=== PATIENT | female | born 1985 | race Caucasian/White ===

== ENCOUNTER 2022-10-10 15:15 | Outpatient (RCR) | payer OTHER, SELFPAY ==
--- NOTE | 2022-06-27 16:34 | PT.OIE ---
Current Diagnoses Pain in left shoulder (06/27/22) Stiffness of left shoulder, not elsewhere classified (06/27/22) Superior glenoid labrum lesion of left shoulder, subsequent encounter (06/27/22) Visit Care Team Role Provider Type ARIANE Bartholomew Family Provider Non-Staff Primary Care Provider Specialty: Family Practice Address: [facility] [address], [place], [address] Email: Dandre Marrufo MD Attending Provider Non-Staff Referring Provider Specialty: Orthopedic Surgery Address: [address] [place] [address] , [place], [address] Email: Physical Therapy Initial Evaluation PT-OP-A Visit Information Start: 06/27/22 16:05 Freq: Status: Active Protocol: Document 06/27/22 09:45 DCW (Rec: 06/27/22 16:33 DC [id number]) Out-Patient Physical Therapy Visit Information Visit Information Visit Type Initial Evaluation Visit Note At time of eval, pt at 2.5 weeks post-op. Per post-op protocol, avoid PROM until three weeks post-op. Pt reports at her two week follow -up, she was told she needed to use her sling for an additional month. Visit Start Time 09:45 Visit Stop Time 10:20 Total Visit Minutes 35 Visit Number 1 Number of SAND CONDITIONER MACHINE Visits 0 Evaluation Information Evaluation Date 06/27/22 PT-OP-B Current Condition Start: 06/27/22 16:05 Freq: Status: Active Protocol: Document 06/27/22 09:45 DCW (Rec: 06/27/22 16:33 DCW [id number]) Current Condition History of Current Condition Onset Date 01/22/22 DOI, 06/09/22 DOS Current Complaints Post-op SLAP lesion, type II, additional biceps repair/ anchoring History of Current Condition Pt is a 36 year old female presenting 2.5 weeks s/p surgical repair of Type II SLAP lesion, as well as a biceps repair/anchoring. 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 MRI revealed partial supraspinatus tear, SLAP lesion type II, extending into LH biceps tendon. Pt underwent arthroscopic surgical repair on 06/09/22. Pt was just informed at post-op follow-up on 06/24/22 to remain in sling for one additional month. Per protocol, do not begin PROM until three-week chi post-op. Pt currently performing some left elbow ROM and pendulums for HEP. Pt reports her is , so since the day following surgery, she has been largely needing to do everything by herself, including don/doff sling. PT-OP-C Subjective Start: 06/27/22 16:05 Freq: Status: Active Protocol: Document 06/27/22 09:45 DCW (Rec: 06/27/22 16:33 DCW [id number]) OP-PT Subjective Patient Comments Patient Comments Pt admits to being very frustrated at the though of an additional month of needing the sling. Patient Questionnaires Quick Dash- Upper Extremity Quick Dash UE Score 90.91% Quick Dash UE Impairment 80 to 99% Impaired (Score 80- 99) OP-PT Pain Assessment Location Left Shoulder Intensity 5 Scale Used Numeric (0 - 10) Frequency Constant PT-OP-K Range of Motion Start: 06/27/22 16:05 Freq: Status: Active Protocol: Document 06/27/22 09:45 DCW (Rec: 06/27/22 16:33 DCW [id number]) Shoulder Goniometric Range of Motion Shoulder Left Passive Comments Pt performs pendulum for flexion PROM, left shoulder moves 10? into flexion Elbow/Forearm Range of Motion Elbow/Forearm Left Active Elbow/Forearm ROM WFL No ROM Testing Position Sitting Elbow Flexion (degrees) 134 Elbow Extension (degrees) 10 Comments Pt feels pull at biceps anchor point at 10? extension PT-OP-Q Treatments Start: 06/27/22 16:05 Freq: Status: Active Protocol: Document 06/27/22 09:45 DCW (Rec: 06/27/22 16:33 DCW [id number]) Therapeutic Exercises Standing Exercises Pendulums Side left PT-OP-T Assessment and Plan Start: 06/27/22 16:05 Freq: Status: Active Protocol: Document 06/27/22 09:45 DCW (Rec: 06/27/22 16:33 DCW [id number]) Physical Therapy Assessment Rehab Potential Rehabilitation Potential Good Evaluation Complexity Number of Personal Factors/Comorbidities 3 or More Number of Body Systems Impaired 1-2 Clinical Presentation at Evaluation Stable Impairments Impairments Functional Activities, Functional Mobility,Pain, Posture,ROM,Soft Tissue Mobility,Strength Goals Two Impairment Pt completely limited with all PROM, per post-op protocol Short Term Goal (STG) Pt to exhibit advancement of PROM following post-op protocol, getting to 80? flexion PROM in order to advance to improving scapular mobility and work toward strengthening STG Duration 07/25/22 Automatic Centrifugal Station Operator Goal (LTG) Pt to exhibit advancement of PROM following post-op protocol, getting to 120? flexion PROM LTG Duration 08/25/22 One Impairment Pt does not have an appropriate home exercise program Short Term Goal (STG) Pt to be independent and compliant with an appropriate PROM HEP STG Duration 07/25/22 Assessment Summary Assessment Pt quite limited for today's evaluation per post-op protocol, pt demonstrated attempts at pendulums, able to allow left shoulder into 10? of flexion, but attempts to move and let arm sway involved pt using AROM to move her UE. Reviewed how to perform proper pendulums, pt instructed at this time to just work on forward flexion by supported forward lean with gravity assist. Pt doing fairly well with elbow ROM, although still feeling pull at biceps anchor with elbow extension. Starting next week at 3 week post-op chi, pt should be better able to participate in gentle PROM, including pulleys and cane, as well as scapular mobility and strengthening. Will work with patient and surgical protocol to progress pt as tolerated through PROM, AROM, and return to normal function. Physical Therapy Plan Frequency and Duration Frequency of Treatment 2x/Week Plan of Care Start Date 06/27/22 Plan of Care End Date 08/25/22 Therapeutic Interventions Therapeutic Interventions Home Exercise Program,Joint Mobilizations,Manual Therapy, Neuromuscular Re-education, Patient/Caregiver Education, Self-Care/Home Management,Soft Tissue Mobilization, Therapeutic Activities, Therapeutic Exercises Modalities Cold Pack/Ice Massage,Electric Stimulation,Hot Packs, Ultrasound Next Visit Focus/Plan Next Note Type Treatment Note Next Visit Plan PROM (Pulleys, Cane, pendulums , therapist-assisted mobility) , scapular mobility, cervical stretching
--- NOTE | 2022-06-27 16:34 | PT.OPPOC ---
Physical, Occupational & Speech Therapy At [facility] Current Diagnoses Pain in left shoulder (06/27/22) Stiffness of left shoulder, not elsewhere classified (06/27/22) Superior glenoid labrum lesion of left shoulder, subsequent encounter (06/27/22) Visit Care Team Role Provider Type ARIANE Bartholomew Family Provider Non-Staff Primary Care Provider Specialty: Family Practice [facility] [address], [place], [address] Email: Dandre Marrufo MD Attending Provider Non-Staff Referring Provider Specialty: Orthopedic Surgery Address: [address], [place], [address] Email: Plan Of Care PT-OP-T Assessment and Plan Start: 06/27/22 16:05 Freq: Status: Active Protocol: Document 06/27/22 09:45 DCW (Rec: 06/27/22 16:33 DCW [id number]) Physical Therapy Assessment Rehab Potential Rehabilitation Potential Good Evaluation Complexity Number of Personal Factors/Comorbidities 3 or More Number of Body Systems Impaired 1-2 Clinical Presentation at Evaluation Stable Impairments Impairments Functional Activities, Functional Mobility,Pain, Posture,ROM,Soft Tissue Mobility,Strength Goals Two Impairment Pt completely limited with all PROM, per post-op protocol Short Term Goal (STG) Pt to exhibit advancement of PROM following post-op protocol, getting to 80? flexion PROM in order to advance to improving scapular mobility and work toward strengthening STG Duration 07/25/22 Group Home Goal (LTG) Pt to exhibit advancement of PROM following post-op protocol, getting to 120? flexion PROM LTG Duration 08/25/22 One Impairment Pt does not have an appropriate home exercise program Short Term Goal (STG) Pt to be independent and compliant with an appropriate PROM HEP STG Duration 07/25/22 Assessment Summary Assessment Pt quite limited for today's evaluation per post-op protocol, pt demonstrated attempts at pendulums, able to allow left shoulder into 10? of flexion, but attempts to move and let arm sway involved pt using AROM to move her UE. Reviewed how to perform proper pendulums, pt instructed at this time to just work on forward flexion by supported forward lean with gravity assist. Pt doing fairly well with elbow ROM, although still feeling pull at biceps anchor with elbow extension. Starting next week at 3 week post-op chi, pt should be better able to participate in gentle PROM, including pulleys and cane, as well as scapular mobility and strengthening. Will work with patient and surgical protocol to progress pt as tolerated through PROM, AROM, and return to normal function. Physical Therapy Plan Frequency and Duration Frequency of Treatment 2x/Week Plan of Care Start Date 06/27/22 Plan of Care End Date 08/25/22 Therapeutic Interventions Therapeutic Interventions Home Exercise Program,Joint Mobilizations,Manual Therapy, Neuromuscular Re-education, Patient/Caregiver Education, Self-Care/Home Management,Soft Tissue Mobilization, Therapeutic Activities, Therapeutic Exercises Modalities Cold Pack/Ice Massage,Electric Stimulation,Hot Packs, Ultrasound Next Visit Focus/Plan Next Note Type Treatment Note Next Visit Plan PROM (Pulleys, Cane, pendulums , therapist-assisted mobility) , scapular mobility, cervical stretching Plan of Care Dates Plan of Care Start Date 06/27/22 Plan of Care End Date 08/25/22 Electronically Signed by: Sushant Chavis, PT 07/01/22 1030 If you are in agreement with this Plan of Care, please return a signed and dated copy. I have reviewed this Plan of Care and certify that the skilled therapy services above are required to meet the patient?s needs. Physician Signature Date Printed Name and Credentials Clinical Instructor Signature Printed Name and Credentials
--- NOTE | 2022-07-01 13:05 | PT.OTN ---
Current Diagnoses Pain in left shoulder (07/01/22) Stiffness of left shoulder, not elsewhere classified (07/01/22) Superior glenoid labrum lesion of left shoulder, subsequent encounter (07/01/22) Physical Therapy Treatment Note PT-OP-A Visit Information Start: 06/27/22 16:05 Freq: Status: Active Protocol: Document 07/01/22 12:14 SP (Rec: 07/01/22 13:51 SP [id number]) Out-Patient Physical Therapy Visit Information Visit Information Visit Type Treatment Note Visit Start Time 12:14 Visit Stop Time 13:05 Total Visit Minutes 51 Visit Number 2 Number of COUNTER CLERK [employer] Visits 1 Evaluation Information Evaluation Date 06/27/22 Precautions Precautions DOS: 06/09/22: At time of eval, pt at 2.5 weeks post-op. Per post-op protocol, avoid PROM until three weeks post-op. Pt reports at her two week follow -up, she was told she needed to use her sling for an additional month. PT-OP-B Current Condition Start: 06/27/22 16:05 Freq: Status: Active Protocol: Document 06/27/22 09:45 DCW (Rec: 06/27/22 16:33 DCW [id number]) Current Condition History of Current Condition Onset Date 01/22/22 DOI, 06/09/22 DOS Current Complaints Post-op SLAP lesion, type II, additional biceps repair/ anchoring History of Current Condition Pt is a 36 year old female presenting 2.5 weeks s/p surgical repair of Type II SLAP lesion, as well as a biceps repair/anchoring. 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 MRI revealed partial supraspinatus tear, SLAP lesion type II, extending into LH biceps tendon. Pt underwent arthroscopic surgical repair on 06/09/22. Pt was just informed at post-op follow-up on 06/24/22 to remain in sling for one additional month. Per protocol, do not begin PROM until three-week chi post-op. Pt currently performing some left elbow ROM and pendulums for HEP. Pt reports her is , so since the day following surgery, she has been largely needing to do everything by herself, including don/doff sling. PT-OP-C Subjective Start: 06/27/22 16:05 Freq: Status: Active Protocol: Document 07/01/22 12:14 SP (Rec: 07/01/22 13:51 SP [id number]) OP-PT Subjective Patient Comments Patient Comments Pt reported little sore after last tx eval. Better understanding trunk wt shift pendulums seated. PT-OP-K Range of Motion Start: 06/27/22 16:05 Freq: Status: Active Protocol: Document 06/27/22 09:45 DCW (Rec: 06/27/22 16:33 DCW [id number]) Shoulder Goniometric Range of Motion Shoulder Left Passive Comments Pt performs pendulum for flexion PROM, left shoulder moves 10? into flexion Elbow/Forearm Range of Motion Elbow/Forearm Left Active Elbow/Forearm ROM WFL No ROM Testing Position Sitting Elbow Flexion (degrees) 134 Elbow Extension (degrees) 10 Comments Pt feels pull at biceps anchor point at 10? extension PT-OP-Q Treatments Start: 06/27/22 16:05 Freq: Status: Active Protocol: Document 07/01/22 12:14 SP (Rec: 07/01/22 13:51 SP [id number]) Therapeutic Exercises Supine Exercises AAROM R elbow Supine Exercise Name flex, ext, pron, sup tolerant range Side left Resistance AAROM therapist, ed self supported by RUE Reps/Minutes 2 min Comments ed for use RUE to support LUE PROM L shld Supine Exercise Name FF up to 45 deg lynn, Side left Sitting Exercises UT, LS stretch Sitting Exercise Name added to HEP Side left Reps/Minutes 20SH Comments good feedback stretch scap retraction Sitting Exercise Name added to HEP Side bilateral Reps/Minutes 5 SH x10 Comments cued tall posture front chair, not over recruit L shld AAROM L elbow Sitting Exercise Name flex/ext/pron/sup tolerant painfree range Side left Resistance RUE support LUE Standing Exercises self STMs Standing Exercise Name demontrated, not performed- recheck next tx Side left Equipment Used ball wall post interscap ball in sock Comments good understanding no over bony prominences Pendulums Standing Exercise Name reviewed seated and finds feels better and give proximation support Side left Resistance PROM Comments good feedback Manual Therapy Treatment Soft Tissue Mobilization scar mobility Body Location L shld Mobilization Type Myofascial Release Intensity/Depth Superficial Body Position Hooklying Comments manual, ed self gentle L arm Body Location L deltoid, lateral humerus Mobilization Type Myofascial Release,Rolling Intensity/Depth Superficial Body Position Sidelying Comments manual gentle L scap Body Location rhomboid, infrasp, suprasp, UT , LS Mobilization Type Strumming,Sustained Pressure, Other Intensity/Depth Moderate Body Position Sidelying Comments manual gently, ed on self use tennis ball in sock back to wall and sustained pressure of RUE FM head nod/turn (UT/LS) Manual Techniques PROM Type L shld FF up to 45 deg tolerance painfree fluid movt Body Location L UE/shld Body Position Hooklying Comments manual painfree range gentle slow movement. Self-Care/Home Management Treatment Education Patient Education Body Mechanics,Home Exercise Program,Joint Protection,Pain Management,Posture,Safety Caregiver Education Time spent propping with pillows neutral L shld for comfort and proximal support with sling donned supine. PROM with L elbow with RUE for now to allow decrease proximal tugging discomfort of bicep tendon states experiences. Added: UT/LS stretching, PROM L elbow w/ RUE, scap retraction, theraputty Yellow more than ball with sling good response. PT-OP-R Modalities Start: 07/01/22 14:59 Freq: Status: Active Protocol: Document 07/01/22 12:14 SP (Rec: 07/01/22 15:00 SP [id number]) Hot Pack/Cold Pack Treatment cryocuff Location L shld Patient Position Sitting Treatment Duration (minutes) 10 Patient Tolerance Good Comments pillow propped under L arm, added w/ sling donned as well. PT-OP-T Assessment and Plan Start: 06/27/22 16:05 Freq: Status: Active Protocol: Document 07/01/22 12:14 SP (Rec: 07/01/22 13:51 SP [id number]) Physical Therapy Assessment Goals Two Impairment Pt completely limited with all PROM, per post-op protocol Short Term Goal (STG) Pt to exhibit advancement of PROM following post-op protocol, getting to 80? flexion PROM in order to advance to improving scapular mobility and work toward strengthening STG Duration 07/25/22 Fdc Goal (LTG) Pt to exhibit advancement of PROM following post-op protocol, getting to 120? flexion PROM LTG Duration 08/25/22 One Impairment Pt does not have an appropriate home exercise program Short Term Goal (STG) Pt to be independent and compliant with an appropriate PROM HEP STG Duration 07/25/22 Assessment Summary Assessment Pt only tolerated 45 deg PROM FF this tx. Good understanding scapular ROM w/ manual and carryover quality seated for home and posturing. Beter response and understanding RUE support LUE during AAROM/PROM L elbow flex/ext less/no tug/ discomfort on proximal bicep with assist this tx. Good feedback to stretching UT/ LS and self STMs to neck/scap. Welcoming to cryocuff this tx, uses CP at home. Good understanding self scar mobility gently at home carryover. Good pendulum proximal support and use of LUE to support RUE during PROM small swings/ ROM Physical Therapy Plan Frequency and Duration Frequency of Treatment 2x/Week Plan of Care Start Date 06/27/22 Plan of Care End Date 08/25/22 Therapeutic Interventions Therapeutic Interventions Home Exercise Program,Joint Mobilizations,Manual Therapy, Neuromuscular Re-education, Patient/Caregiver Education, Self-Care/Home Management,Soft Tissue Mobilization, Therapeutic Activities, Therapeutic Exercises Modalities Cold Pack/Ice Massage,Electric Stimulation,Hot Packs, Ultrasound Next Visit Focus/Plan Next Note Type Treatment Note Next Visit Plan Assess response to PROM FF 45 deg and seated LUE assist RUE pendulum and self massage, scap retractions. POC: Assess if able to progress (Pulleys, Cane, pendulums, therapist-assisted mobility), scapular mobility
--- NOTE | 2022-07-04 15:25 | PT.OTN ---
Current Diagnoses Pain in left shoulder (07/04/22) Stiffness of left shoulder, not elsewhere classified (07/04/22) Superior glenoid labrum lesion of left shoulder, subsequent encounter (07/04/22) Physical Therapy Treatment Note PT-OP-A Visit Information Start: 06/27/22 16:05 Freq: Status: Active Protocol: Document 07/04/22 14:32 SP (Rec: 07/04/22 16:08 SP [id number]) Out-Patient Physical Therapy Visit Information Visit Information Visit Type Treatment Note Visit Start Time 14:32 Visit Stop Time 15:25 Total Visit Minutes 53 Visit Number 3 Number of DUST PULLER Visits 2 Evaluation Information Evaluation Date 06/27/22 Precautions Precautions DOS: 06/09/22: Pt reports at her two week follow-up, she was told she needed to use her sling for an additional month. PT-OP-B Current Condition Start: 06/27/22 16:05 Freq: Status: Active Protocol: Document 06/27/22 09:45 DCW (Rec: 06/27/22 16:33 DCW [id number]) Current Condition History of Current Condition Onset Date 01/22/22 DOI, 06/09/22 DOS Current Complaints Post-op SLAP lesion, type II, additional biceps repair/ anchoring History of Current Condition Pt is a 36 year old female presenting 2.5 weeks s/p surgical repair of Type II SLAP lesion, as well as a biceps repair/anchoring. 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 MRI revealed partial supraspinatus tear, SLAP lesion type II, extending into LH biceps tendon. Pt underwent arthroscopic surgical repair on 06/09/22. Pt was just informed at post-op follow-up on 06/24/22 to remain in sling for one additional month. Per protocol, do not begin PROM until three-week chi post-op. Pt currently performing some left elbow ROM and pendulums for HEP. Pt reports her is , so since the day following surgery, she has been largely needing to do everything by herself, including don/doff sling. PT-OP-C Subjective Start: 06/27/22 16:05 Freq: Status: Active Protocol: Document 07/04/22 14:32 SP (Rec: 07/04/22 16:08 SP [id number]) OP-PT Subjective Patient Comments Patient Comments Pt reports felt a stitch out of scar on back L shld, feels skin little irritated. Called ortho regarding stitch and pop felt and tingling in L bicep pre last tx and was instructed if doesn't improve before next week call back. Pt reports utilizes CP at home regularly for comfort and only needed to take Tylenol this am, might take later for comfort. PT-OP-K Range of Motion Start: 06/27/22 16:05 Freq: Status: Active Protocol: Document 06/27/22 09:45 DCW (Rec: 06/27/22 16:33 DCW [id number]) Shoulder Goniometric Range of Motion Shoulder Left Passive Comments Pt performs pendulum for flexion PROM, left shoulder moves 10? into flexion Elbow/Forearm Range of Motion Elbow/Forearm Left Active Elbow/Forearm ROM WFL No ROM Testing Position Sitting Elbow Flexion (degrees) 134 Elbow Extension (degrees) 10 Comments Pt feels pull at biceps anchor point at 10? extension PT-OP-Q Treatments Start: 06/27/22 16:05 Freq: Status: Active Protocol: Document 07/04/22 14:32 SP (Rec: 07/04/22 16:08 SP [id number]) Therapeutic Exercises Supine Exercises PROM L shld wand Supine Exercise Name trialed FF (bent elbow) Side left Resistance PROM via wand (RUE support LUE ) Reps/Minutes x2 rep attempt Comments discomfort in L bicep and anterior shld- Hold PROM L shld Supine Exercise Name FF up to 55 deg lynn, Side left Reps/Minutes 2 min Comments painfree range Sidelying Exercises scapular clocks Sidelying Exercise Name 12, 6, 3, 9 o'clock Side left Resistance AROM Reps/Minutes x6 reps each direction Comments good feedback, painfree Sitting Exercises table slide Sitting Exercise Name trialed FF- 07/04/22 Side left Resistance PROM L shld- trunk flexion Reps/Minutes x2 rep attempt Comments discomfort anterior L shld- Hold bryn Sitting Exercise Name trialed FF- 07/04/22 Side left Resistance RUE PROM support LUE Reps/Minutes 2 reps Comments cued no UT, challenged without compensations- Hold for now UT, LS stretch Sitting Exercise Name reviewed HEP Side left Reps/Minutes 20SH each Comments good feedback stretch scap retraction Sitting Exercise Name reviewed HEP Side bilateral Reps/Minutes 5 SH x10 Comments cued tall posture front chair, not over recruit L shld AAROM L elbow Sitting Exercise Name flex/ext/pron/sup- reviewed HEP Side left Resistance RUE support LUE Equipment Used pillow under elbow Reps/Minutes x10 reps each Comments slow tolerant painfree range Standing Exercises Pendulums Standing Exercise Name f/b/lateral/ CW/ CCW: seated best painfree Side left Resistance PROM via RUE (R elbow rested on R knee, straight back) Reps/Minutes 1 min Comments good feedback no tension felt Manual Therapy Treatment Soft Tissue Mobilization scar mobility Body Location L shld Mobilization Type Myofascial Release Intensity/Depth Superficial Body Position Hooklying Comments manual, little stitch sticking out of posterior L shld scar, pt states little irritated by shirt rubbing on it- noted very light pink coloring spot L arm Body Location L deltoid, tricep, bicep Mobilization Type Myofascial Release,Rolling Intensity/Depth Superficial Body Position Sidelying Comments manual gentle L scap Body Location rhomboid, infrasp, suprasp, UT , LS Mobilization Type Strumming,Sustained Pressure, Other Intensity/Depth Moderate Body Position Sidelying Comments manual gently, ed on self use tennis ball in sock back to wall and sustained pressure of RUE FM head nod/turn (UT/LS) Joint Mobilizations scap thoracic Joint L shld Direction superior, inferior, retract, depression Grade I Body Position Sidelying Comments good feedback maual with ed for scapular clocks. Manual Techniques PROM Type L shld FF up to 55 deg tolerance painfree fluid movt Body Location L UE/shld Body Position Hooklying Comments manual painfree range gentle slow movement/range. PT-OP-R Modalities Start: 07/01/22 14:59 Freq: Status: Active Protocol: Document 07/04/22 14:32 SP (Rec: 07/04/22 16:08 SP [id number]) Hot Pack/Cold Pack Treatment cryocuff Location L shld Patient Position Sitting Treatment Duration (minutes) 10 Patient Tolerance Good Comments arm rested in lap- good PT-OP-T Assessment and Plan Start: 06/27/22 16:05 Freq: Status: Active Protocol: Document 07/04/22 14:32 SP (Rec: 07/04/22 16:08 SP [id number]) Physical Therapy Assessment Goals Two Impairment Pt completely limited with all PROM, per post-op protocol Short Term Goal (STG) Pt to exhibit advancement of PROM following post-op protocol, getting to 80? flexion PROM in order to advance to improving scapular mobility and work toward strengthening STG Duration 07/25/22 Snf Goal (LTG) Pt to exhibit advancement of PROM following post-op protocol, getting to 120? flexion PROM LTG Duration 08/25/22 One Impairment Pt does not have an appropriate home exercise program Short Term Goal (STG) Pt to be independent and compliant with an appropriate PROM HEP STG Duration 07/25/22 Assessment Summary Assessment Pt less guarding during PROM FF able to progress approx 55deg reported almost no discomfort. Attempted PROM self use pulleys/ table slide seated/wand supine FF, unable to perform without shld elevation and slight protraction guarding and midlevel pain anterior 2 reps very small range so discussed will reassess next tx. Physical Therapy Plan Frequency and Duration Frequency of Treatment 2x/Week Plan of Care Start Date 06/27/22 Plan of Care End Date 08/25/22 Therapeutic Interventions Therapeutic Interventions Home Exercise Program,Joint Mobilizations,Manual Therapy, Neuromuscular Re-education, Patient/Caregiver Education, Self-Care/Home Management,Soft Tissue Mobilization, Therapeutic Activities, Therapeutic Exercises Modalities Cold Pack/Ice Massage,Electric Stimulation,Hot Packs, Ultrasound Next Visit Focus/Plan Next Note Type Treatment Note Next Visit Plan Assess response to PROM FF 55 deg, attempt PROM self (pully, table slide, supine wand) POC: Assess if able to progress (Pulleys, Cane, pendulums, therapist-assisted mobility), scapular mobility
--- NOTE | 2022-07-07 12:49 | PT.OTN ---
Current Diagnoses Pain in left shoulder (07/07/22) Stiffness of left shoulder, not elsewhere classified (07/07/22) Superior glenoid labrum lesion of left shoulder, subsequent encounter (07/07/22) Physical Therapy Treatment Note PT-OP-A Visit Information Start: 06/27/22 16:05 Freq: Status: Active Protocol: Document 07/07/22 09:44 AMB (Rec: 07/07/22 10:35 AMB [id number]) Out-Patient Physical Therapy Visit Information Visit Information Visit Type Treatment Note Visit Start Time 14:32 Visit Stop Time 15:25 Total Visit Minutes 53 Visit Number 4 Number of HUMAN RESOURCES SPECIALIST Visits 0 PT-OP-B Current Condition Start: 06/27/22 16:05 Freq: Status: Active Protocol: Document 06/27/22 09:45 DCW (Rec: 06/27/22 16:33 DCW [id number]) Current Condition History of Current Condition Onset Date 01/22/22 DOI, 06/09/22 DOS Current Complaints Post-op SLAP lesion, type II, additional biceps repair/ anchoring History of Current Condition Pt is a 36 year old female presenting 2.5 weeks s/p surgical repair of Type II SLAP lesion, as well as a biceps repair/anchoring. 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 MRI revealed partial supraspinatus tear, SLAP lesion type II, extending into LH biceps tendon. Pt underwent arthroscopic surgical repair on 06/09/22. Pt was just informed at post-op follow-up on 06/24/22 to remain in sling for one additional month. Per protocol, do not begin PROM until three-week chi post-op. Pt currently performing some left elbow ROM and pendulums for HEP. Pt reports her is , so since the day following surgery, she has been largely needing to do everything by herself, including don/doff sling. PT-OP-C Subjective Start: 06/27/22 16:05 Freq: Status: Active Protocol: Document 07/07/22 09:44 AMB (Rec: 07/07/22 10:35 AMB [id number]) OP-PT Subjective Patient Comments Patient Comments The patient reports she continues to have anterior shoulder pain PT-OP-K Range of Motion Start: 06/27/22 16:05 Freq: Status: Active Protocol: Document 06/27/22 09:45 DCW (Rec: 06/27/22 16:33 DCW [id number]) Shoulder Goniometric Range of Motion Shoulder Left Passive Comments Pt performs pendulum for flexion PROM, left shoulder moves 10? into flexion Elbow/Forearm Range of Motion Elbow/Forearm Left Active Elbow/Forearm ROM WFL No ROM Testing Position Sitting Elbow Flexion (degrees) 134 Elbow Extension (degrees) 10 Comments Pt feels pull at biceps anchor point at 10? extension PT-OP-Q Treatments Start: 06/27/22 16:05 Freq: Status: Active Protocol: Document 07/07/22 09:45 AMB (Rec: 07/07/22 12:47 AMB [id number]) Therapeutic Exercises Supine Exercises PROM L shld Supine Exercise Name FF up to 40-50 deg lynn, Side left Reps/Minutes 2 min Comments painfree range Sitting Exercises AAROM L elbow Sitting Exercise Name flex/ext/pron/sup- reviewed HEP Side left Resistance RUE support LUE Equipment Used pillow under elbow Reps/Minutes x10 reps each Comments slow tolerant painfree range Manual Therapy Treatment Soft Tissue Mobilization L arm Body Location L deltoid, tricep, bicep Mobilization Type Myofascial Release,Rolling Intensity/Depth Superficial Body Position Sidelying Comments manual gentle Manual Techniques PROM Type L shld FF up to 55 deg tolerance painfree fluid movt Body Location L UE/shld Body Position Hooklying Comments manual painfree range gentle slow movement/range, started gently working into gentle scaption and IR but very small range. PT-OP-R Modalities Start: 07/01/22 14:59 Freq: Status: Active Protocol: Document 07/07/22 09:45 AMB (Rec: 07/07/22 12:48 AMB [id number]) Hot Pack/Cold Pack Treatment Cold Pack Location L shoulder Patient Position Sitting Treatment Duration (minutes) 10 Patient Tolerance Good PT-OP-T Assessment and Plan Start: 06/27/22 16:05 Freq: Status: Active Protocol: Document 07/07/22 09:45 AMB (Rec: 07/07/22 12:47 AMB [id number]) Physical Therapy Assessment Goals Two Impairment Pt completely limited with all PROM, per post-op protocol Short Term Goal (STG) Pt to exhibit advancement of PROM following post-op protocol, getting to 80? flexion PROM in order to advance to improving scapular mobility and work toward strengthening STG Duration 07/25/22 Helpdesk Administrator Goal (LTG) Pt to exhibit advancement of PROM following post-op protocol, getting to 120? flexion PROM LTG Duration 08/25/22 One Impairment Pt does not have an appropriate home exercise program Short Term Goal (STG) Pt to be independent and compliant with an appropriate PROM HEP STG Duration 07/25/22 Assessment Summary Assessment Pt reports increased pain after Thursday. Has been doing seated PROM with other arm, to approx 40 degrees, encouraged pt to continue with this and discussed normal healing process at length. Physical Therapy Plan Frequency and Duration Frequency of Treatment 2x/Week Plan of Care Start Date 06/27/22 Plan of Care End Date 08/25/22 Therapeutic Interventions Therapeutic Interventions Home Exercise Program,Joint Mobilizations,Manual Therapy, Neuromuscular Re-education, Patient/Caregiver Education, Self-Care/Home Management,Soft Tissue Mobilization, Therapeutic Activities, Therapeutic Exercises Modalities Cold Pack/Ice Massage,Electric Stimulation,Hot Packs, Ultrasound Next Visit Focus/Plan Next Note Type Treatment Note Next Visit Plan Assess response to PROM FF 55 deg, pt attempting PROM in seated. POC: Assess if able to progress (Pulleys, Cane, pendulums, therapist-assisted mobility), scapular mobility
--- NOTE | 2022-07-11 09:52 | PT.OTN ---
Current Diagnoses Pain in left shoulder (07/11/22) Stiffness of left shoulder, not elsewhere classified (07/11/22) Superior glenoid labrum lesion of left shoulder, subsequent encounter (07/11/22) Physical Therapy Treatment Note PT-OP-A Visit Information Start: 06/27/22 16:05 Freq: Status: Active Protocol: Document 07/11/22 09:04 SP (Rec: 07/11/22 09:51 SP [id number]) Out-Patient Physical Therapy Visit Information Visit Information Visit Type Treatment Note Visit Start Time 09:04 Visit Stop Time 09:52 Total Visit Minutes 48 Visit Number 5 Number of SPRING COVERER Visits 1 Evaluation Information Evaluation Date 06/27/22 Precautions Precautions DOS: 06/09/22: Pt reports at her two week follow-up, she was told she needed to use her sling for an additional month. PT-OP-B Current Condition Start: 06/27/22 16:05 Freq: Status: Active Protocol: Document 06/27/22 09:45 DCW (Rec: 06/27/22 16:33 DCW [id number]) Current Condition History of Current Condition Onset Date 01/22/22 DOI, 06/09/22 DOS Current Complaints Post-op SLAP lesion, type II, additional biceps repair/ anchoring History of Current Condition Pt is a 36 year old female presenting 2.5 weeks s/p surgical repair of Type II SLAP lesion, as well as a biceps repair/anchoring. 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 MRI revealed partial supraspinatus tear, SLAP lesion type II, extending into LH biceps tendon. Pt underwent arthroscopic surgical repair on 06/09/22. Pt was just informed at post-op follow-up on 06/24/22 to remain in sling for one additional month. Per protocol, do not begin PROM until three-week chi post-op. Pt currently performing some left elbow ROM and pendulums for HEP. Pt reports her is , so since the day following surgery, she has been largely needing to do everything by herself, including don/doff sling. PT-OP-C Subjective Start: 06/27/22 16:05 Freq: Status: Active Protocol: Document 07/11/22 09:04 SP (Rec: 07/11/22 09:51 SP [id number]) OP-PT Subjective Patient Comments Patient Comments Pt reports feels doing well with standing pendulum and PROM seated in FF RUE supporting LUE. PT-OP-K Range of Motion Start: 06/27/22 16:05 Freq: Status: Active Protocol: Document 06/27/22 09:45 DCW (Rec: 06/27/22 16:33 DCW [id number]) Shoulder Goniometric Range of Motion Shoulder Left Passive Comments Pt performs pendulum for flexion PROM, left shoulder moves 10? into flexion Elbow/Forearm Range of Motion Elbow/Forearm Left Active Elbow/Forearm ROM WFL No ROM Testing Position Sitting Elbow Flexion (degrees) 134 Elbow Extension (degrees) 10 Comments Pt feels pull at biceps anchor point at 10? extension PT-OP-Q Treatments Start: 06/27/22 16:05 Freq: Status: Active Protocol: Document 07/11/22 09:04 SP (Rec: 07/11/22 09:51 SP [id number]) Therapeutic Exercises Supine Exercises PROM L shld wand Supine Exercise Name therapist support- HOld today- trial next tx Side left Resistance PROM via wand (RUE support LUE ) Reps/Minutes x2 rep attempt Comments discomfort in L bicep and anterior shld PROM L shld Supine Exercise Name FF up to 70 deg lynn, Side left Reps/Minutes 2 min Comments painfree range Sitting Exercises table slide Sitting Exercise Name cued painfree range small range Side left Resistance PROM L shld- trunk flexion Reps/Minutes x2 rep attempt Comments cued slow bryn Sitting Exercise Name improved tolerance FF (elbow bent) Side left Resistance RUE PROM support LUE Reps/Minutes 2 reps Comments cued no UT, challenged without compensations- Hold for now scap retraction Sitting Exercise Name reviewed HEP Side bilateral Reps/Minutes 5 SH x10 Comments cued tall posture front chair, not over recruit L shld AAROM L elbow Sitting Exercise Name flex/ext/pron/sup- reviewed HEP Side left Resistance RUE support LUE Equipment Used pillow under elbow Reps/Minutes x10 reps each Comments slow tolerant painfree range Standing Exercises PROM RUE support LUE Standing Exercise Name reviewed self- good form approx 75 deg Comments seated best form, least tension ant shld, attempted wall painful stopped Pendulums Standing Exercise Name f/b/lateral/ CW/ CCW Side left Resistance PROM standing mom Reps/Minutes 1 min Comments good feedback no tension felt Manual Therapy Treatment Soft Tissue Mobilization scar mobility Body Location L shld Mobilization Type Myofascial Release Intensity/Depth Superficial Body Position Hooklying Comments manual, little stitch sticking out of posterior L shld scar, pt states little irritated by shirt rubbing on it- noted very light pink coloring spot L arm Body Location L deltoid, tricep, bicep, pec, B forearm flex/ext Mobilization Type Myofascial Release,Rolling Intensity/Depth Superficial Body Position Hooklying Comments manual gentle Joint Mobilizations L GH jt Direction AP, inf/sup Grade I Body Position Hooklying Comments gentle small painfree range Manual Techniques PROM Type L shld FF up to deg tolerance painfree fluid movt Body Location L UE/shld Body Position Hooklying Comments manual painfree range gentle slow movement/range, started gently working into gentle scaption and IR but very small range. PT-OP-R Modalities Start: 07/01/22 14:59 Freq: Status: Active Protocol: Document 07/11/22 09:04 SP (Rec: 07/11/22 09:51 SP [id number]) Hot Pack/Cold Pack Treatment cryocuff Location L shld Patient Position Sitting Treatment Duration (minutes) 10 Patient Tolerance Good Comments arm rested in lap- good PT-OP-T Assessment and Plan Start: 06/27/22 16:05 Freq: Status: Active Protocol: Document 07/11/22 09:04 SP (Rec: 07/11/22 09:51 SP [id number]) Physical Therapy Assessment Goals Two Impairment Pt completely limited with all PROM, per post-op protocol Short Term Goal (STG) Pt to exhibit advancement of PROM following post-op protocol, getting to 80? flexion PROM in order to advance to improving scapular mobility and work toward strengthening STG Duration 07/25/22 Legal Advisor Goal (LTG) Pt to exhibit advancement of PROM following post-op protocol, getting to 120? flexion PROM LTG Duration 08/25/22 One Impairment Pt does not have an appropriate home exercise program Short Term Goal (STG) Pt to be independent and compliant with an appropriate PROM HEP STG Duration 07/25/22 Assessment Summary Assessment Pt making gains in PROM therapist approx 70 deg FF. Pt responded best PROM FF self RUE supporting L seated by end tx approx 80deg vs supine vs standing at wall. Does not tolerate initiation of wand at this time. Pt does not have pulleys at home and unsure can get any, suggested get bryn /rope at [employer] for self performance for least cost. Ed for improved upright posturing decrease forward head on phone during CP at end tx for decreased pressure on posterior chain/nerve distribution, DNF and scap retraction pec stretch post sitting scap/ CS ROM. Physical Therapy Plan Frequency and Duration Frequency of Treatment 2x/Week Plan of Care Start Date 06/27/22 Plan of Care End Date 08/25/22 Therapeutic Interventions Therapeutic Interventions Home Exercise Program,Joint Mobilizations,Manual Therapy, Neuromuscular Re-education, Patient/Caregiver Education, Self-Care/Home Management,Soft Tissue Mobilization, Therapeutic Activities, Therapeutic Exercises Modalities Cold Pack/Ice Massage,Electric Stimulation,Hot Packs, Ultrasound Next Visit Focus/Plan Next Note Type Treatment Note Next Visit Plan Continue pulleys post manual, attempt wand. POC: Assess if able to progress (Pulleys, Cane, pendulums, therapist-assisted mobility), scapular mobility
--- NOTE | 2022-07-21 15:49 | PT.OTN ---
Current Diagnoses Pain in left shoulder (07/21/22) Stiffness of left shoulder, not elsewhere classified (07/21/22) Superior glenoid labrum lesion of left shoulder, subsequent encounter (07/21/22) Physical Therapy Treatment Note PT-OP-A Visit Information Start: 06/27/22 16:05 Freq: Status: Active Protocol: Document 07/21/22 10:00 AMB (Rec: 07/21/22 10:33 AMB [id number]) Out-Patient Physical Therapy Visit Information Visit Information Visit Type Treatment Note Visit Start Time 09:50 Visit Stop Time 10:30 Total Visit Minutes 40 Visit Number 6 Number of DRUG ABUSE SOCIAL WORKER Visits 0 Evaluation Information Evaluation Date 06/27/22 Precautions Precautions DOS: 06/09/22: Pt reports at her two week follow-up, she was told she needed to use her sling for an additional month. PT-OP-B Current Condition Start: 06/27/22 16:05 Freq: Status: Active Protocol: Document 06/27/22 09:45 DCW (Rec: 06/27/22 16:33 DCW [id number]) Current Condition History of Current Condition Onset Date 01/22/22 DOI, 06/09/22 DOS Current Complaints Post-op SLAP lesion, type II, additional biceps repair/ anchoring History of Current Condition Pt is a 36 year old female presenting 2.5 weeks s/p surgical repair of Type II SLAP lesion, as well as a biceps repair/anchoring. 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 MRI revealed partial supraspinatus tear, SLAP lesion type II, extending into LH biceps tendon. Pt underwent arthroscopic surgical repair on 06/09/22. Pt was just informed at post-op follow-up on 06/24/22 to remain in sling for one additional month. Per protocol, do not begin PROM until three-week chi post-op. Pt currently performing some left elbow ROM and pendulums for HEP. Pt reports her is , so since the day following surgery, she has been largely needing to do everything by herself, including don/doff sling. PT-OP-C Subjective Start: 06/27/22 16:05 Freq: Status: Active Protocol: Document 07/21/22 10:00 AMB (Rec: 07/21/22 10:33 AMB [id number]) OP-PT Subjective Patient Comments Patient Comments 6 weeks post op. PT-OP-K Range of Motion Start: 06/27/22 16:05 Freq: Status: Active Protocol: Document 06/27/22 09:45 DCW (Rec: 06/27/22 16:33 DCW [id number]) Shoulder Goniometric Range of Motion Shoulder Left Passive Comments Pt performs pendulum for flexion PROM, left shoulder moves 10? into flexion Elbow/Forearm Range of Motion Elbow/Forearm Left Active Elbow/Forearm ROM WFL No ROM Testing Position Sitting Elbow Flexion (degrees) 134 Elbow Extension (degrees) 10 Comments Pt feels pull at biceps anchor point at 10? extension PT-OP-Q Treatments Start: 06/27/22 16:05 Freq: Status: Active Protocol: Document 07/21/22 10:00 AMB (Rec: 07/21/22 15:48 AMB [id number]) Therapeutic Exercises Supine Exercises PROM L shld Supine Exercise Name FF up to 80 deg lynn, Side left Reps/Minutes 2 min Comments painfree range Sitting Exercises scap retraction Sitting Exercise Name reviewed HEP Side bilateral Reps/Minutes 5 SH x10 Comments cued tall posture front chair, not over recruit L shld Standing Exercises isometric Standing Exercise Name given for HEP: flexion, abd, extension Reps/Minutes 5x5 Comments using wall vs body/otherhand, cued gentle Manual Therapy Treatment Soft Tissue Mobilization scar mobility Body Location L shld Mobilization Type Myofascial Release Intensity/Depth Superficial Body Position Hooklying Comments manual, posterior scar better L arm Body Location L deltoid, tricep, bicep, pec, B forearm flex/ext Mobilization Type Myofascial Release,Rolling Intensity/Depth Superficial Body Position Hooklying Comments manual gentle PT-OP-R Modalities Start: 07/01/22 14:59 Freq: Status: Active Protocol: Document 07/11/22 09:04 SP (Rec: 07/11/22 09:51 SP [id number]) Hot Pack/Cold Pack Treatment cryocuff Location L shld Patient Position Sitting Treatment Duration (minutes) 10 Patient Tolerance Good Comments arm rested in lap- good PT-OP-T Assessment and Plan Start: 06/27/22 16:05 Freq: Status: Active Protocol: Document 07/21/22 10:00 AMB (Rec: 07/21/22 15:48 LILIANA [id number]) Physical Therapy Assessment Goals Two Impairment Pt completely limited with all PROM, per post-op protocol Short Term Goal (STG) Pt to exhibit advancement of PROM following post-op protocol, getting to 80? flexion PROM in order to advance to improving scapular mobility and work toward strengthening STG Duration 07/25/22 Merry Go Round Attendant Goal (LTG) Pt to exhibit advancement of PROM following post-op protocol, getting to 120? flexion PROM LTG Duration 08/25/22 One Impairment Pt does not have an appropriate home exercise program Short Term Goal (STG) Pt to be independent and compliant with an appropriate PROM HEP STG Duration 07/25/22 Assessment Summary Assessment Initiated isometrics today and pt was more successful with this, encouraged in continued pulleys (did get pulleys for home). Pt continues to be concerned regarding popping/ pain swelling. Tried to be reassuring. Pt is seeing ortho tomorrow. Physical Therapy Plan Frequency and Duration Frequency of Treatment 2x/Week Plan of Care Start Date 06/27/22 Plan of Care End Date 08/25/22 Therapeutic Interventions Therapeutic Interventions Home Exercise Program,Joint Mobilizations,Manual Therapy, Neuromuscular Re-education, Patient/Caregiver Education, Self-Care/Home Management,Soft Tissue Mobilization, Therapeutic Activities, Therapeutic Exercises Modalities Cold Pack/Ice Massage,Electric Stimulation,Hot Packs, Ultrasound Next Visit Focus/Plan Next Note Type Treatment Note Next Visit Plan Continue pulleys post manual, attempt wand. POC: Assess if able to progress (Pulleys, Cane, pendulums, therapist-assisted mobility), scapular mobility
--- NOTE | 2022-07-25 15:18 | PT.OTN ---
Current Diagnoses Pain in left shoulder (07/25/22) Stiffness of left shoulder, not elsewhere classified (07/25/22) Superior glenoid labrum lesion of left shoulder, subsequent encounter (07/25/22) Physical Therapy Treatment Note PT-OP-A Visit Information Start: 06/27/22 16:05 Freq: Status: Active Protocol: Document 07/25/22 14:30 DCW (Rec: 07/25/22 15:18 DCW [id number]) Out-Patient Physical Therapy Visit Information Visit Information Visit Type Treatment Note Visit Start Time 14:30 Visit Stop Time 15:15 Total Visit Minutes 45 Visit Number 7 Number of PODIATRIST ASSISTANT Visits 0 Evaluation Information Evaluation Date 06/27/22 Precautions Precautions 07/25/22: Begin phase 2 Modalities Scapular/GH Mobilization R/C strengthening light T-band UBE PT-OP-B Current Condition Start: 06/27/22 16:05 Freq: Status: Active Protocol: Document 06/27/22 09:45 DCW (Rec: 06/27/22 16:33 DCW [id number]) Current Condition History of Current Condition Onset Date 01/22/22 DOI, 06/09/22 DOS Current Complaints Post-op SLAP lesion, type II, additional biceps repair/ anchoring History of Current Condition Pt is a 36 year old female presenting 2.5 weeks s/p surgical repair of Type II SLAP lesion, as well as a biceps repair/anchoring. 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 MRI revealed partial supraspinatus tear, SLAP lesion type II, extending into LH biceps tendon. Pt underwent arthroscopic surgical repair on 06/09/22. Pt was just informed at post-op follow-up on 06/24/22 to remain in sling for one additional month. Per protocol, do not begin PROM until three-week chi post-op. Pt currently performing some left elbow ROM and pendulums for HEP. Pt reports her is , so since the day following surgery, she has been largely needing to do everything by herself, including don/doff sling. PT-OP-C Subjective Start: 06/27/22 16:05 Freq: Status: Active Protocol: Document 07/25/22 14:30 DCW (Rec: 07/25/22 15:18 DCW [id number]) OP-PT Subjective Patient Comments Patient Comments Ortho reported that she is cleared to move into phase two of post-op protocol, is currently wearing sling when out, not at home or during the night anymore. PT-OP-K Range of Motion Start: 06/27/22 16:05 Freq: Status: Active Protocol: Document 06/27/22 09:45 DCW (Rec: 06/27/22 16:33 DCW [id number]) Shoulder Goniometric Range of Motion Shoulder Left Passive Comments Pt performs pendulum for flexion PROM, left shoulder moves 10? into flexion Elbow/Forearm Range of Motion Elbow/Forearm Left Active Elbow/Forearm ROM WFL No ROM Testing Position Sitting Elbow Flexion (degrees) 134 Elbow Extension (degrees) 10 Comments Pt feels pull at biceps anchor point at 10? extension PT-OP-Q Treatments Start: 06/27/22 16:05 Freq: Status: Active Protocol: Document 07/25/22 14:30 DCW (Rec: 07/25/22 15:18 DCW [id number]) Cardio Equipment Upper Body Ergometer (UBE) Duration (Minutes) 4 Seat Position 12 Height 2 Other Just forward Therapeutic Exercises Standing Exercises Rows Standing Exercise Name Rows Side bilateral Resistance Lv 1 IR/ER Standing Exercise Name IR/ER Side left Resistance Lv 1 Adduction Standing Exercise Name Shoulder Adduction Side left Resistance Lv 1 Extension Standing Exercise Name Shoulder Extension Side bilateral Resistance Lv 1 Manual Therapy Treatment Soft Tissue Mobilization L arm Body Location L deltoid, tricep, bicep, pec, B forearm flex/ext Mobilization Type Myofascial Release,Rolling Intensity/Depth Superficial Body Position Hooklying Comments manual gentle Joint Mobilizations L GH jt Direction AP, inf/sup Grade I Body Position Hooklying Comments gentle small painfree range Manual Techniques PROM Body Location L UE/shld Body Position Hooklying Comments 105 deg Flex 85 deg Abd PT-OP-R Modalities Start: 07/01/22 14:59 Freq: Status: Active Protocol: Document 07/11/22 09:04 SP (Rec: 07/11/22 09:51 SP [id number]) Hot Pack/Cold Pack Treatment cryocuff Location L shld Patient Position Sitting Treatment Duration (minutes) 10 Patient Tolerance Good Comments arm rested in lap- good PT-OP-T Assessment and Plan Start: 06/27/22 16:05 Freq: Status: Active Protocol: Document 07/25/22 14:30 DCW (Rec: 07/25/22 15:18 DCW [id number]) Physical Therapy Assessment Goals Two Impairment Pt completely limited with all PROM, per post-op protocol Short Term Goal (STG) Pt to exhibit advancement of PROM following post-op protocol, getting to 80? flexion PROM in order to advance to improving scapular mobility and work toward strengthening STG Duration 07/25/22 Chcf Goal (LTG) Pt to exhibit advancement of PROM following post-op protocol, getting to 120? flexion PROM LTG Duration 08/25/22 One Impairment Pt does not have an appropriate home exercise program Short Term Goal (STG) Pt to be independent and compliant with an appropriate PROM HEP STG Duration 07/25/22 Assessment Summary Assessment Showing good progress with PROM, tolerated addition of AROM and resistance exercises with minimal additional pain, is still showing mild-moderate swelling along posterior upper arm. Most painful area still along biceps. Physical Therapy Plan Frequency and Duration Frequency of Treatment 2x/Week Plan of Care Start Date 06/27/22 Plan of Care End Date 08/25/22 Therapeutic Interventions Therapeutic Interventions Home Exercise Program,Joint Mobilizations,Manual Therapy, Neuromuscular Re-education, Patient/Caregiver Education, Self-Care/Home Management,Soft Tissue Mobilization, Therapeutic Activities, Therapeutic Exercises Modalities Cold Pack/Ice Massage,Electric Stimulation,Hot Packs, Ultrasound Next Visit Focus/Plan Next Note Type Treatment Note Next Visit Plan Continue pulleys post manual, attempt wand. POC: Assess if able to progress (Pulleys, Cane, pendulums, therapist-assisted mobility), scapular mobility
--- NOTE | 2022-07-28 15:18 | PT.OTN ---
Current Diagnoses Pain in left shoulder (07/28/22) Stiffness of left shoulder, not elsewhere classified (07/28/22) Superior glenoid labrum lesion of left shoulder, subsequent encounter (07/28/22) Physical Therapy Treatment Note PT-OP-A Visit Information Start: 06/27/22 16:05 Freq: Status: Active Protocol: Document 07/28/22 14:30 DCW (Rec: 07/28/22 15:18 DCW [id number]) Out-Patient Physical Therapy Visit Information Visit Information Visit Type Treatment Note Visit Start Time 14:30 Visit Stop Time 15:15 Total Visit Minutes 45 Visit Number 8 Number of RECREATION THERAPIST Visits 0 Evaluation Information Evaluation Date 06/27/22 Precautions Precautions 07/25/22: Begin phase 2 Modalities Scapular/GH Mobilization R/C strengthening light T-band UBE PT-OP-B Current Condition Start: 06/27/22 16:05 Freq: Status: Active Protocol: Document 06/27/22 09:45 DCW (Rec: 06/27/22 16:33 DCW [id number]) Current Condition History of Current Condition Onset Date 01/22/22 DOI, 06/09/22 DOS Current Complaints Post-op SLAP lesion, type II, additional biceps repair/ anchoring History of Current Condition Pt is a 36 year old female presenting 2.5 weeks s/p surgical repair of Type II SLAP lesion, as well as a biceps repair/anchoring. 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 MRI revealed partial supraspinatus tear, SLAP lesion type II, extending into LH biceps tendon. Pt underwent arthroscopic surgical repair on 06/09/22. Pt was just informed at post-op follow-up on 06/24/22 to remain in sling for one additional month. Per protocol, do not begin PROM until three-week chi post-op. Pt currently performing some left elbow ROM and pendulums for HEP. Pt reports her is , so since the day following surgery, she has been largely needing to do everything by herself, including don/doff sling. PT-OP-C Subjective Start: 06/27/22 16:05 Freq: Status: Active Protocol: Document 07/28/22 14:30 DCW (Rec: 07/28/22 15:18 DCW [id number]) OP-PT Subjective Patient Comments Patient Comments A little bit of increased pain following start of phase 2 activities last week. PT-OP-K Range of Motion Start: 06/27/22 16:05 Freq: Status: Active Protocol: Document 06/27/22 09:45 DCW (Rec: 06/27/22 16:33 DCW [id number]) Shoulder Goniometric Range of Motion Shoulder Left Passive Comments Pt performs pendulum for flexion PROM, left shoulder moves 10? into flexion Elbow/Forearm Range of Motion Elbow/Forearm Left Active Elbow/Forearm ROM WFL No ROM Testing Position Sitting Elbow Flexion (degrees) 134 Elbow Extension (degrees) 10 Comments Pt feels pull at biceps anchor point at 10? extension PT-OP-Q Treatments Start: 06/27/22 16:05 Freq: Status: Active Protocol: Document 07/28/22 14:30 DCW (Rec: 07/28/22 15:18 DCW [id number]) Cardio Equipment Upper Body Ergometer (UBE) Duration (Minutes) 4 Seat Position 11 Height 3 Other Forward/Backward Therapeutic Exercises Supine Exercises PROM L shld Supine Exercise Name FF up to 110? Side bilateral Comments painfree range Standing Exercises Curls Standing Exercise Name Biceps curls/reverse curls Side bilateral Resistance 2# Abduction Standing Exercise Name Shoulder Abduction Side left Resistance Lv 1 Flexion Standing Exercise Name Shoulder Flexion Side left Resistance Lv 1 Comments VCs to limit trunk side- bending Rows Standing Exercise Name Rows Side bilateral Resistance Lv 1 IR/ER Standing Exercise Name IR/ER Side left Resistance Lv 1 Adduction Standing Exercise Name Shoulder Adduction Side left Resistance Lv 1 Extension Standing Exercise Name Shoulder Extension Side bilateral Resistance Lv 1 Manual Therapy Treatment Soft Tissue Mobilization L arm Body Location L deltoid, tricep, bicep, pec, B forearm flex/ext Mobilization Type Myofascial Release,Rolling Intensity/Depth Superficial Body Position Hooklying Comments manual gentle Joint Mobilizations L GH jt Direction AP, inf/sup Grade I Body Position Hooklying Comments gentle small painfree range Manual Techniques PROM Body Location L UE/shld Body Position Hooklying Comments 110? Flex 90? Abd PT-OP-R Modalities Start: 07/01/22 14:59 Freq: Status: Active Protocol: Document 07/11/22 09:04 SP (Rec: 07/11/22 09:51 SP [id number]) Hot Pack/Cold Pack Treatment cryocuff Location L shld Patient Position Sitting Treatment Duration (minutes) 10 Patient Tolerance Good Comments arm rested in lap- good PT-OP-T Assessment and Plan Start: 06/27/22 16:05 Freq: Status: Active Protocol: Document 07/28/22 14:30 DCW (Rec: 07/28/22 15:18 DCW [id number]) Physical Therapy Assessment Impairments Impairments Functional Activities, Functional Mobility,Pain, Posture,ROM,Soft Tissue Mobility,Strength Goals Two Impairment Pt completely limited with all PROM, per post-op protocol Short Term Goal (STG) Pt to exhibit advancement of PROM following post-op protocol, getting to 80? flexion PROM in order to advance to improving scapular mobility and work toward strengthening STG Duration 07/25/22 Long-Term Goal (LTG) Pt to exhibit advancement of PROM following post-op protocol, getting to 120? flexion PROM LTG Duration 08/25/22 One Impairment Pt does not have an appropriate home exercise program Short Term Goal (STG) Pt to be independent and compliant with an appropriate PROM HEP STG Duration 07/25/22 Assessment Summary Assessment Pt tolerated addition of T- band exercises well last week, minimal increase in pain, showing good progress overall with both passive and active ROM. Will begin to slowly increase resistance. Physical Therapy Plan Frequency and Duration Frequency of Treatment 2x/Week Plan of Care Start Date 06/27/22 Plan of Care End Date 08/25/22 Therapeutic Interventions Therapeutic Interventions Home Exercise Program,Joint Mobilizations,Manual Therapy, Neuromuscular Re-education, Patient/Caregiver Education, Self-Care/Home Management,Soft Tissue Mobilization, Therapeutic Activities, Therapeutic Exercises Modalities Cold Pack/Ice Massage,Electric Stimulation,Hot Packs, Ultrasound Next Visit Focus/Plan Next Note Type Treatment Note Next Visit Plan Progress AROM/resistance training
--- NOTE | 2022-08-04 16:44 | PT.OTN ---
Current Diagnoses Pain in left shoulder (08/04/22) Stiffness of left shoulder, not elsewhere classified (08/04/22) Superior glenoid labrum lesion of left shoulder, subsequent encounter (08/04/22) Physical Therapy Treatment Note PT-OP-A Visit Information Start: 06/27/22 16:05 Freq: Status: Active Protocol: Document 08/04/22 16:00 DCW (Rec: 08/04/22 16:44 DCW [id number]) Out-Patient Physical Therapy Visit Information Visit Information Visit Type Treatment Note Visit Start Time 16:00 Visit Stop Time 16:45 Total Visit Minutes 45 Visit Number 9 Number of MILK HOUSE WORKER Visits 0 Evaluation Information Evaluation Date 06/27/22 Precautions Precautions 07/25/22: Begin phase 2 Modalities Scapular/GH Mobilization R/C strengthening light T-band UBE PT-OP-B Current Condition Start: 06/27/22 16:05 Freq: Status: Active Protocol: Document 06/27/22 09:45 DCW (Rec: 06/27/22 16:33 DCW [id number]) Current Condition History of Current Condition Onset Date 01/22/22 DOI, 06/09/22 DOS Current Complaints Post-op SLAP lesion, type II, additional biceps repair/ anchoring History of Current Condition Pt is a 36 year old female presenting 2.5 weeks s/p surgical repair of Type II SLAP lesion, as well as a biceps repair/anchoring. 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 MRI revealed partial supraspinatus tear, SLAP lesion type II, extending into LH biceps tendon. Pt underwent arthroscopic surgical repair on 06/09/22. Pt was just informed at post-op follow-up on 06/24/22 to remain in sling for one additional month. Per protocol, do not begin PROM until three-week chi post-op. Pt currently performing some left elbow ROM and pendulums for HEP. Pt reports her is , so since the day following surgery, she has been largely needing to do everything by herself, including don/doff sling. PT-OP-C Subjective Start: 06/27/22 16:05 Freq: Status: Active Protocol: Document 08/04/22 16:00 DCW (Rec: 08/04/22 16:44 DCW [id number]) OP-PT Subjective Patient Comments Patient Comments It was sore last week, but not too extreme. PT-OP-K Range of Motion Start: 06/27/22 16:05 Freq: Status: Active Protocol: Document 06/27/22 09:45 DCW (Rec: 06/27/22 16:33 DCW [id number]) Shoulder Goniometric Range of Motion Shoulder Left Passive Comments Pt performs pendulum for flexion PROM, left shoulder moves 10? into flexion Elbow/Forearm Range of Motion Elbow/Forearm Left Active Elbow/Forearm ROM WFL No ROM Testing Position Sitting Elbow Flexion (degrees) 134 Elbow Extension (degrees) 10 Comments Pt feels pull at biceps anchor point at 10? extension PT-OP-Q Treatments Start: 06/27/22 16:05 Freq: Status: Active Protocol: Document 08/04/22 16:00 DCW (Rec: 08/04/22 16:44 DCW [id number]) Cardio Equipment Upper Body Ergometer (UBE) Duration (Minutes) 4 Seat Position 12 Height 3 Other Forward/Backward Therapeutic Exercises Standing Exercises Curls Standing Exercise Name Biceps curls/reverse curls Side bilateral Resistance 3# Abduction Standing Exercise Name Shoulder Abduction Side bilateral Resistance Lv 3 Flexion Standing Exercise Name Shoulder Flexion Side left Resistance Lv 3 Comments VCs to limit trunk side- bending Rows Standing Exercise Name Rows Side bilateral Resistance Lv 3 IR/ER Standing Exercise Name IR/ER Side left Resistance Lv 2 Adduction Standing Exercise Name Shoulder Adduction Side left Resistance Lv 3 Extension Standing Exercise Name Shoulder Extension Side bilateral Resistance Lv 3 Other Exercises Resisted Ambulation Other Exercise Name Resisted UE Side-stepping Resistance Yellow Manual Therapy Treatment Soft Tissue Mobilization L arm Body Location L deltoid, tricep, bicep, pec, B forearm flex/ext Mobilization Type Myofascial Release,Rolling Intensity/Depth Superficial Body Position Hooklying Comments manual gentle Joint Mobilizations L GH jt Direction AP, inf/sup Grade I Body Position Hooklying Comments gentle small painfree range Manual Techniques PROM Body Location L UE/shld Body Position Hooklying Comments 115? Flex 97? Abd PT-OP-R Modalities Start: 07/01/22 14:59 Freq: Status: Active Protocol: Document 07/11/22 09:04 SP (Rec: 07/11/22 09:51 SP [id number]) Hot Pack/Cold Pack Treatment cryocuff Location L shld Patient Position Sitting Treatment Duration (minutes) 10 Patient Tolerance Good Comments arm rested in lap- good PT-OP-T Assessment and Plan Start: 06/27/22 16:05 Freq: Status: Active Protocol: Document 08/04/22 16:00 DCW (Rec: 08/04/22 16:44 DCW [id number]) Physical Therapy Assessment Impairments Impairments Functional Activities, Functional Mobility,Pain, Posture,ROM,Soft Tissue Mobility,Strength Goals Two Impairment Pt completely limited with all PROM, per post-op protocol Short Term Goal (STG) Pt to exhibit advancement of PROM following post-op protocol, getting to 80? flexion PROM in order to advance to improving scapular mobility and work toward strengthening STG Duration 07/25/22 Public Address Announcer Goal (LTG) Pt to exhibit advancement of PROM following post-op protocol, getting to 120? flexion PROM LTG Duration 08/25/22 One Impairment Pt does not have an appropriate home exercise program Short Term Goal (STG) Pt to be independent and compliant with an appropriate PROM HEP STG Duration 07/25/22 Assessment Summary Assessment Pt progressing into phase 2 well, some slight soreness and general pain, but overall showing improving strength and ROM Physical Therapy Plan Frequency and Duration Frequency of Treatment 2x/Week Plan of Care Start Date 06/27/22 Plan of Care End Date 08/25/22 Therapeutic Interventions Therapeutic Interventions Home Exercise Program,Joint Mobilizations,Manual Therapy, Neuromuscular Re-education, Patient/Caregiver Education, Self-Care/Home Management,Soft Tissue Mobilization, Therapeutic Activities, Therapeutic Exercises Modalities Cold Pack/Ice Massage,Electric Stimulation,Hot Packs, Ultrasound Next Visit Focus/Plan Next Note Type Treatment Note Next Visit Plan Progress AROM/resistance training
--- NOTE | 2022-08-13 10:31 | PT.OTN ---
Current Diagnoses Pain in left shoulder (08/13/22) Stiffness of left shoulder, not elsewhere classified (08/13/22) Superior glenoid labrum lesion of left shoulder, subsequent encounter (08/13/22) Physical Therapy Treatment Note PT-OP-A Visit Information Start: 06/27/22 16:05 Freq: Status: Active Protocol: Document 08/13/22 09:45 DCW (Rec: 08/13/22 10:31 DCW [id number]) Out-Patient Physical Therapy Visit Information Visit Information Visit Type Treatment Note Visit Start Time 09:45 Visit Stop Time 10:30 Total Visit Minutes 45 Visit Number 10 Number of RANCH RIDER Visits 0 Evaluation Information Evaluation Date 06/27/22 Precautions Precautions 07/25/22: Begin phase 2 Modalities Scapular/GH Mobilization R/C strengthening light T-band UBE PT-OP-B Current Condition Start: 06/27/22 16:05 Freq: Status: Active Protocol: Document 06/27/22 09:45 DCW (Rec: 06/27/22 16:33 DCW [id number]) Current Condition History of Current Condition Onset Date 01/22/22 DOI, 06/09/22 DOS Current Complaints Post-op SLAP lesion, type II, additional biceps repair/ anchoring History of Current Condition Pt is a 36 year old female presenting 2.5 weeks s/p surgical repair of Type II SLAP lesion, as well as a biceps repair/anchoring. 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 MRI revealed partial supraspinatus tear, SLAP lesion type II, extending into LH biceps tendon. Pt underwent arthroscopic surgical repair on 06/09/22. Pt was just informed at post-op follow-up on 06/24/22 to remain in sling for one additional month. Per protocol, do not begin PROM until three-week chi post-op. Pt currently performing some left elbow ROM and pendulums for HEP. Pt reports her is , so since the day following surgery, she has been largely needing to do everything by herself, including don/doff sling. PT-OP-C Subjective Start: 06/27/22 16:05 Freq: Status: Active Protocol: Document 08/13/22 09:45 DCW (Rec: 08/13/22 10:31 DCW [id number]) OP-PT Subjective Patient Comments Patient Comments Pt reports her shoulder is a little sore, but has been very busy at work, has already put in a 40-hour week, and has been using her arm more than usual. PT-OP-K Range of Motion Start: 06/27/22 16:05 Freq: Status: Active Protocol: Document 06/27/22 09:45 DCW (Rec: 06/27/22 16:33 DCW [id number]) Shoulder Goniometric Range of Motion Shoulder Left Passive Comments Pt performs pendulum for flexion PROM, left shoulder moves 10? into flexion Elbow/Forearm Range of Motion Elbow/Forearm Left Active Elbow/Forearm ROM WFL No ROM Testing Position Sitting Elbow Flexion (degrees) 134 Elbow Extension (degrees) 10 Comments Pt feels pull at biceps anchor point at 10? extension PT-OP-Q Treatments Start: 06/27/22 16:05 Freq: Status: Active Protocol: Document 08/13/22 09:45 DCW (Rec: 08/13/22 10:31 DCW [id number]) Cardio Equipment Upper Body Ergometer (UBE) Duration (Minutes) 5 Seat Position 12 Height 3 Other Forward/Backward Therapeutic Exercises Supine Exercises PROM L shld Supine Exercise Name FF up to 150? Side bilateral Comments pain-free range Standing Exercises IR stretch Standing Exercise Name IR towel stretch Side left Comments R arm low, not high Curls Standing Exercise Name Biceps curls/reverse curls Side bilateral Resistance 3# Abduction Standing Exercise Name Shoulder Abduction Side bilateral Resistance Lv 2 Flexion Standing Exercise Name Shoulder Flexion Side left Resistance Lv 2 Comments VCs to limit trunk side- bending Rows Standing Exercise Name Rows Side bilateral Resistance Lv 3 IR/ER Standing Exercise Name IR/ER Side left Resistance Lv 2 Adduction Standing Exercise Name Shoulder Adduction Side left Resistance Lv 3 Extension Standing Exercise Name Shoulder Extension Side bilateral Resistance Lv 3 Other Exercises Resisted Ambulation Other Exercise Name Resisted UE Side-stepping Resistance Yellow Manual Therapy Treatment Soft Tissue Mobilization L arm Body Location L deltoid, tricep, bicep, pec, B forearm flex/ext Mobilization Type Myofascial Release,Rolling Intensity/Depth Superficial Body Position Hooklying Comments manual gentle Joint Mobilizations L GH jt Direction AP, inf/sup Grade I Body Position Hooklying Comments gentle small painfree range PT-OP-R Modalities Start: 07/01/22 14:59 Freq: Status: Active Protocol: Document 07/11/22 09:04 SP (Rec: 07/11/22 09:51 SP [id number]) Hot Pack/Cold Pack Treatment cryocuff Location L shld Patient Position Sitting Treatment Duration (minutes) 10 Patient Tolerance Good Comments arm rested in lap- good PT-OP-T Assessment and Plan Start: 06/27/22 16:05 Freq: Status: Active Protocol: Document 08/13/22 09:45 DCW (Rec: 08/13/22 10:31 DCW [id number]) Physical Therapy Assessment Impairments Impairments Functional Activities, Functional Mobility,Pain, Posture,ROM,Soft Tissue Mobility,Strength Goals Two Impairment Pt completely limited with all PROM, per post-op protocol Short Term Goal (STG) Pt to exhibit advancement of PROM following post-op protocol, getting to 80? flexion PROM in order to advance to improving scapular mobility and work toward strengthening STG Duration 07/25/22 Genetic Technologist Goal (LTG) Pt to exhibit advancement of PROM following post-op protocol, getting to 120? flexion PROM LTG Duration 08/25/22 One Impairment Pt does not have an appropriate home exercise program Short Term Goal (STG) Pt to be independent and compliant with an appropriate PROM HEP STG Duration 07/25/22 Assessment Summary Assessment Pt improving with both active and passive ROM, able to perform more activities without discomfort. Discussed that pt should be able to perform her current work activities without wearing her sling, although still restrict pushing/pulling and overhead lifting. Physical Therapy Plan Frequency and Duration Frequency of Treatment 2x/Week Plan of Care Start Date 06/27/22 Plan of Care End Date 08/25/22 Therapeutic Interventions Therapeutic Interventions Home Exercise Program,Joint Mobilizations,Manual Therapy, Neuromuscular Re-education, Patient/Caregiver Education, Self-Care/Home Management,Soft Tissue Mobilization, Therapeutic Activities, Therapeutic Exercises Modalities Cold Pack/Ice Massage,Electric Stimulation,Hot Packs, Ultrasound Next Visit Focus/Plan Next Note Type Treatment Note Next Visit Plan Progress AROM/resistance training
--- NOTE | 2022-08-21 17:44 | PT.OTN ---
Current Diagnoses Pain in left shoulder (08/21/22) Stiffness of left shoulder, not elsewhere classified (08/21/22) Superior glenoid labrum lesion of left shoulder, subsequent encounter (08/21/22) Physical Therapy Treatment Note PT-OP-A Visit Information Start: 06/27/22 16:05 Freq: Status: Active Protocol: Document 08/21/22 16:45 DCW (Rec: 08/21/22 17:43 DCW [id number]) Out-Patient Physical Therapy Visit Information Visit Information Visit Type Treatment Note Visit Start Time 16:45 Visit Stop Time 17:30 Total Visit Minutes 45 Visit Number 11 Number of TAKE DOWN INSPECTOR Visits 0 Evaluation Information Evaluation Date 06/27/22 Precautions Precautions 07/25/22: Begin phase 2 Modalities Scapular/GH Mobilization R/C strengthening light T-band UBE PT-OP-B Current Condition Start: 06/27/22 16:05 Freq: Status: Active Protocol: Document 06/27/22 09:45 DCW (Rec: 06/27/22 16:33 DCW [id number]) Current Condition History of Current Condition Onset Date 01/22/22 DOI, 06/09/22 DOS Current Complaints Post-op SLAP lesion, type II, additional biceps repair/ anchoring History of Current Condition Pt is a 36 year old female presenting 2.5 weeks s/p surgical repair of Type II SLAP lesion, as well as a biceps repair/anchoring. 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 MRI revealed partial supraspinatus tear, SLAP lesion type II, extending into LH biceps tendon. Pt underwent arthroscopic surgical repair on 06/09/22. Pt was just informed at post-op follow-up on 06/24/22 to remain in sling for one additional month. Per protocol, do not begin PROM until three-week chi post-op. Pt currently performing some left elbow ROM and pendulums for HEP. Pt reports her is , so since the day following surgery, she has been largely needing to do everything by herself, including don/doff sling. PT-OP-C Subjective Start: 06/27/22 16:05 Freq: Status: Active Protocol: Document 08/21/22 16:45 DCW (Rec: 08/21/22 17:43 DCW [id number]) OP-PT Subjective Patient Comments Patient Comments Pt has had a very busy week at work, notes her shoulder is fairly sore. Does admits that she is still not doing any pushing or pulling, but is just moving so much that it is hard to let it rest. PT-OP-K Range of Motion Start: 06/27/22 16:05 Freq: Status: Active Protocol: Document 06/27/22 09:45 DCW (Rec: 06/27/22 16:33 DCW [id number]) Shoulder Goniometric Range of Motion Shoulder Left Passive Comments Pt performs pendulum for flexion PROM, left shoulder moves 10? into flexion Elbow/Forearm Range of Motion Elbow/Forearm Left Active Elbow/Forearm ROM WFL No ROM Testing Position Sitting Elbow Flexion (degrees) 134 Elbow Extension (degrees) 10 Comments Pt feels pull at biceps anchor point at 10? extension PT-OP-Q Treatments Start: 06/27/22 16:05 Freq: Status: Active Protocol: Document 08/21/22 16:45 DCW (Rec: 08/21/22 17:43 DCW [id number]) Cardio Equipment Upper Body Ergometer (UBE) Duration (Minutes) 5 Seat Position 12 Height 3 Other Forward/Backward Therapeutic Exercises Supine Exercises IR/ER Supine Exercise Name IR/ER at 90/90 Side left Resistance 2.2# yellow ball Serratus Punch Supine Exercise Name Serratus Punch Side bilateral Resistance 3# PROM L shld Supine Exercise Name FF up to 156? Side bilateral Comments pain-free range Standing Exercises Curls Standing Exercise Name Biceps curls/reverse curls Side bilateral Resistance 3# Abduction Standing Exercise Name Shoulder Abduction Side bilateral Resistance Yellow T-band Flexion Standing Exercise Name Shoulder Flexion Side left Resistance Yellow T-band Comments VCs to limit trunk side- bending Rows Standing Exercise Name Rows Side bilateral Resistance Green LF IR/ER Standing Exercise Name IR/ER Side left Resistance Green LF Adduction Standing Exercise Name Shoulder Adduction Side left Resistance Green LF Extension Standing Exercise Name Shoulder Extension Side bilateral Resistance Green LF Other Exercises Wall slides Other Exercise Name Wall slides Side bilateral Resistance Red loop Resisted Ambulation Other Exercise Name Resisted UE Side-stepping Resistance Red loop Manual Therapy Treatment Soft Tissue Mobilization L arm Body Location L deltoid, tricep, bicep, pec, B forearm flex/ext Mobilization Type Myofascial Release,Rolling Intensity/Depth Superficial Body Position Hooklying Comments manual gentle Joint Mobilizations L GH jt Direction AP, inf/sup Grade I Body Position Hooklying Comments gentle small painfree range PT-OP-R Modalities Start: 07/01/22 14:59 Freq: Status: Active Protocol: Document 07/11/22 09:04 SP (Rec: 07/11/22 09:51 SP [id number]) Hot Pack/Cold Pack Treatment cryocuff Location L shld Patient Position Sitting Treatment Duration (minutes) 10 Patient Tolerance Good Comments arm rested in lap- good PT-OP-T Assessment and Plan Start: 06/27/22 16:05 Freq: Status: Active Protocol: Document 08/21/22 16:45 DCW (Rec: 08/21/22 17:43 DCW [id number]) Physical Therapy Assessment Impairments Impairments Functional Activities, Functional Mobility,Pain, Posture,ROM,Soft Tissue Mobility,Strength Goals Two Impairment Pt completely limited with all PROM, per post-op protocol Short Term Goal (STG) Pt to exhibit advancement of PROM following post-op protocol, getting to 80? flexion PROM in order to advance to improving scapular mobility and work toward strengthening STG Duration 07/25/22 Control Manager Goal (LTG) Pt to exhibit advancement of PROM following post-op protocol, getting to 120? flexion PROM LTG Duration 08/25/22 One Impairment Pt does not have an appropriate home exercise program Short Term Goal (STG) Pt to be independent and compliant with an appropriate PROM HEP STG Duration 07/25/22 Assessment Summary Assessment Pt showing very good progress overall, will likely work toward progressing to phase III, with increased resistance , diagonals, and plyometrics Physical Therapy Plan Frequency and Duration Frequency of Treatment 2x/Week Plan of Care Start Date 06/27/22 Plan of Care End Date 08/25/22 Therapeutic Interventions Therapeutic Interventions Home Exercise Program,Joint Mobilizations,Manual Therapy, Neuromuscular Re-education, Patient/Caregiver Education, Self-Care/Home Management,Soft Tissue Mobilization, Therapeutic Activities, Therapeutic Exercises Modalities Cold Pack/Ice Massage,Electric Stimulation,Hot Packs, Ultrasound Next Visit Focus/Plan Next Note Type Treatment Note Next Visit Plan Progress AROM/resistance training
--- NOTE | 2022-08-25 17:37 | PT.OTN ---
Current Diagnoses Pain in left shoulder (08/25/22) Stiffness of left shoulder, not elsewhere classified (08/25/22) Superior glenoid labrum lesion of left shoulder, subsequent encounter (08/25/22) Physical Therapy Treatment Note PT-OP-A Visit Information Start: 06/27/22 16:05 Freq: Status: Active Protocol: Document 08/25/22 16:45 DCW (Rec: 08/25/22 17:36 DCW [id number]) Out-Patient Physical Therapy Visit Information Visit Information Visit Type Progress Note Visit Start Time 16:45 Visit Stop Time 17:30 Total Visit Minutes 45 Visit Number 12 Number of SUPERINTENDENT STATIONS Visits 0 Evaluation Information Evaluation Date 06/27/22 Precautions Precautions 07/25/22: Begin phase 2 Modalities Scapular/GH Mobilization R/C strengthening light T-band UBE PT-OP-B Current Condition Start: 06/27/22 16:05 Freq: Status: Active Protocol: Document 06/27/22 09:45 DCW (Rec: 06/27/22 16:33 DCW [id number]) Current Condition History of Current Condition Onset Date 01/22/22 DOI, 06/09/22 DOS Current Complaints Post-op SLAP lesion, type II, additional biceps repair/ anchoring History of Current Condition Pt is a 36 year old female presenting 2.5 weeks s/p surgical repair of Type II SLAP lesion, as well as a biceps repair/anchoring. 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 MRI revealed partial supraspinatus tear, SLAP lesion type II, extending into LH biceps tendon. Pt underwent arthroscopic surgical repair on 06/09/22. Pt was just informed at post-op follow-up on 06/24/22 to remain in sling for one additional month. Per protocol, do not begin PROM until three-week chi post-op. Pt currently performing some left elbow ROM and pendulums for HEP. Pt reports her is , so since the day following surgery, she has been largely needing to do everything by herself, including don/doff sling. PT-OP-C Subjective Start: 06/27/22 16:05 Freq: Status: Active Protocol: Document 08/25/22 16:45 DCW (Rec: 08/25/22 17:36 DCW [id number]) OP-PT Subjective Patient Comments Patient Comments Pt a little sore today, work going okay, still not pushing /lifting. PT-OP-K Range of Motion Start: 06/27/22 16:05 Freq: Status: Active Protocol: Document 08/25/22 16:45 DCW (Rec: 08/25/22 16:54 DCW [id number]) Shoulder Goniometric Range of Motion Shoulder Left Active Testing Position Sitting Flexion 94 Abduction 83 External Rotation at 0 degrees Abduction 34 Internal Rotation Behind Back (text) Left SI Left Passive Testing Position Sitting Flexion 111 Abduction 82 External Rotation at 0 degrees Abduction 23 Elbow/Forearm Range of Motion Elbow/Forearm Left Active Elbow/Forearm ROM WFL Yes ROM Testing Position Sitting Elbow Flexion (degrees) 140 Elbow Extension (degrees) 0 PT-OP-M Strength Start: 06/27/22 16:05 Freq: Status: Active Protocol: Document 08/25/22 16:45 DCW (Rec: 08/25/22 16:54 DCW [id number]) Shoulder Strength Shoulder Manual Muscle Testing Left Flexion 3- Fair- Abduction (C5) 3- Fair- External Rotation 2+ Poor+ Internal Rotation 3+ Fair+ PT-OP-Q Treatments Start: 06/27/22 16:05 Freq: Status: Active Protocol: Document 08/25/22 16:45 DCW (Rec: 08/25/22 17:36 DCW [id number]) Therapeutic Exercises Standing Exercises PNF D1/D2 Flexion Standing Exercise Name D1/D2 UE PNF Side left Resistance 3# Other Exercises Wall push-ups Other Exercise Name Wall push-ups Side bilateral Comments <> and W hand positions Wall ball Other Exercise Name Ball bounce against wall Side left Equipment Used Space Pencilnis Ball Wall slides Other Exercise Name Wall slides Side bilateral Resistance Red loop Resisted Ambulation Other Exercise Name Resisted UE Side-stepping Resistance Red loop Manual Therapy Treatment Soft Tissue Mobilization L arm Body Location L deltoid, tricep, bicep, pec, B forearm flex/ext Mobilization Type Myofascial Release,Rolling Intensity/Depth Superficial Body Position Hooklying Comments manual gentle Joint Mobilizations L GH jt Direction AP, inf/sup Grade I Body Position Hooklying Comments gentle small painfree range PT-OP-R Modalities Start: 07/01/22 14:59 Freq: Status: Active Protocol: Document 07/11/22 09:04 SP (Rec: 07/11/22 09:51 SP [id number]) Hot Pack/Cold Pack Treatment cryocuff Location L shld Patient Position Sitting Treatment Duration (minutes) 10 Patient Tolerance Good Comments arm rested in lap- good PT-OP-T Assessment and Plan Start: 06/27/22 16:05 Freq: Status: Active Protocol: Document 08/25/22 16:45 DCW (Rec: 08/25/22 17:36 DCW [id number]) Physical Therapy Assessment Impairments Impairments Functional Activities, Functional Mobility,Pain, Posture,ROM,Soft Tissue Mobility,Strength Goals Two Impairment Pt completely limited with all PROM, per post-op protocol Short Term Goal (STG) Pt to exhibit advancement of PROM following post-op protocol, getting to 80? flexion PROM in order to advance to improving scapular mobility and work toward strengthening STG Duration Met Fdc Goal (LTG) Pt to exhibit advancement of PROM following post-op protocol, getting to 120? flexion PROM LTG Duration 11/23/22 One Impairment Pt does not have an appropriate home exercise program Short Term Goal (STG) Pt to be independent and compliant with an appropriate PROM HEP STG Duration 11/23/22 Assessment Summary Assessment Pt doing well, making appropriate progress since surgery. Working on implementation of phase three activities, including diagonals and increasing resistance. Physical Therapy Plan Frequency and Duration Frequency of Treatment 2x/Week Plan of Care Start Date 08/25/22 Plan of Care End Date 11/23/22 Therapeutic Interventions Therapeutic Interventions Home Exercise Program,Joint Mobilizations,Manual Therapy, Neuromuscular Re-education, Patient/Caregiver Education, Self-Care/Home Management,Soft Tissue Mobilization, Therapeutic Activities, Therapeutic Exercises Modalities Cold Pack/Ice Massage,Electric Stimulation,Hot Packs, Ultrasound Next Visit Focus/Plan Next Note Type Treatment Note Next Visit Plan Progress AROM/resistance training
--- NOTE | 2022-08-25 17:37 | PT.OPPOC ---
Physical, Occupational & Speech Therapy At [facility] Current Diagnoses Pain in left shoulder (08/25/22) Stiffness of left shoulder, not elsewhere classified (08/25/22) Superior glenoid labrum lesion of left shoulder, subsequent encounter (08/25/22) Visit Care Team Role Provider Type ARIANE Bartholomew Family Provider Non-Staff Primary Care Provider Specialty: Family Practice Address: [facility] [address], [place], [address] Email: Dandre Marrufo MD Attending Provider Non-Staff Referring Provider Specialty: Orthopedic Surgery Address: [address], [place], [address] Email: Plan Of Care PT-OP-T Assessment and Plan Start: 06/27/22 16:05 Freq: Status: Active Protocol: Document 08/25/22 16:45 DCW (Rec: 08/25/22 17:36 DCW [id number]) Physical Therapy Assessment Impairments Impairments Functional Activities, Functional Mobility,Pain, Posture,ROM,Soft Tissue Mobility,Strength Goals Two Impairment Pt completely limited with all PROM, per post-op protocol Short Term Goal (STG) Pt to exhibit advancement of PROM following post-op protocol, getting to 80? flexion PROM in order to advance to improving scapular mobility and work toward strengthening STG Duration Met Director Software Development Goal (LTG) Pt to exhibit advancement of PROM following post-op protocol, getting to 120? flexion PROM LTG Duration 11/23/22 One Impairment Pt does not have an appropriate home exercise program Short Term Goal (STG) Pt to be independent and compliant with an appropriate PROM HEP STG Duration 11/23/22 Assessment Summary Assessment Pt doing well, making appropriate progress since surgery. Working on implementation of phase three activities, including diagonals and increasing resistance. Physical Therapy Plan Frequency and Duration Frequency of Treatment 2x/Week Plan of Care Start Date 08/25/22 Plan of Care End Date 11/23/22 Therapeutic Interventions Therapeutic Interventions Home Exercise Program,Joint Mobilizations,Manual Therapy, Neuromuscular Re-education, Patient/Caregiver Education, Self-Care/Home Management,Soft Tissue Mobilization, Therapeutic Activities, Therapeutic Exercises Modalities Cold Pack/Ice Massage,Electric Stimulation,Hot Packs, Ultrasound Next Visit Focus/Plan Next Note Type Treatment Note Next Visit Plan Progress AROM/resistance training Plan of Care Dates Plan of Care Start Date 08/25/22 Plan of Care End Date 11/23/22 Electronically Signed by: Sushant Chavis, PT 08/25/22 4242 If you are in agreement with this Plan of Care, please return a signed and dated copy. I have reviewed this Plan of Care and certify that the skilled therapy services above are required to meet the patient?s needs. Physician Signature Date Printed Name and Credentials Clinical Instructor Signature Printed Name and Credentials
--- NOTE | 2022-08-28 16:45 | PT.OTN ---
Current Diagnoses Pain in left shoulder (08/28/22) Stiffness of left shoulder, not elsewhere classified (08/28/22) Superior glenoid labrum lesion of left shoulder, subsequent encounter (08/28/22) Physical Therapy Treatment Note PT-OP-A Visit Information Start: 06/27/22 16:05 Freq: Status: Active Protocol: Document 08/28/22 16:00 DCW (Rec: 08/28/22 16:45 DCW [id number]) Out-Patient Physical Therapy Visit Information Visit Information Visit Type Treatment Note Visit Start Time 16:00 Visit Stop Time 16:45 Total Visit Minutes 45 Visit Number 13 Number of DIRECTOR CRAFT CENTER Visits 0 Evaluation Information Evaluation Date 06/27/22 Precautions Precautions 07/25/22: Begin phase 2 Modalities Scapular/GH Mobilization R/C strengthening light T-band UBE PT-OP-B Current Condition Start: 06/27/22 16:05 Freq: Status: Active Protocol: Document 06/27/22 09:45 DCW (Rec: 06/27/22 16:33 DCW [id number]) Current Condition History of Current Condition Onset Date 01/22/22 DOI, 06/09/22 DOS Current Complaints Post-op SLAP lesion, type II, additional biceps repair/ anchoring History of Current Condition Pt is a 36 year old female presenting 2.5 weeks s/p surgical repair of Type II SLAP lesion, as well as a biceps repair/anchoring. 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 MRI revealed partial supraspinatus tear, SLAP lesion type II, extending into LH biceps tendon. Pt underwent arthroscopic surgical repair on 06/09/22. Pt was just informed at post-op follow-up on 06/24/22 to remain in sling for one additional month. Per protocol, do not begin PROM until three-week chi post-op. Pt currently performing some left elbow ROM and pendulums for HEP. Pt reports her is , so since the day following surgery, she has been largely needing to do everything by herself, including don/doff sling. PT-OP-C Subjective Start: 06/27/22 16:05 Freq: Status: Active Protocol: Document 08/28/22 16:00 DCW (Rec: 08/28/22 16:45 DCW [id number]) OP-PT Subjective Patient Comments Patient Comments My shoulder did not like the new stuff, it's still a little sore. PT-OP-K Range of Motion Start: 06/27/22 16:05 Freq: Status: Active Protocol: Document 08/25/22 16:45 DCW (Rec: 08/25/22 16:54 DCW [id number]) Shoulder Goniometric Range of Motion Shoulder Left Active Testing Position Sitting Flexion 94 Abduction 83 External Rotation at 0 degrees Abduction 34 Internal Rotation Behind Back (text) Left SI Left Passive Testing Position Sitting Flexion 111 Abduction 82 External Rotation at 0 degrees Abduction 23 Elbow/Forearm Range of Motion Elbow/Forearm Left Active Elbow/Forearm ROM WFL Yes ROM Testing Position Sitting Elbow Flexion (degrees) 140 Elbow Extension (degrees) 0 PT-OP-M Strength Start: 06/27/22 16:05 Freq: Status: Active Protocol: Document 08/25/22 16:45 DCW (Rec: 08/25/22 16:54 DCW [id number]) Shoulder Strength Shoulder Manual Muscle Testing Left Flexion 3- Fair- Abduction (C5) 3- Fair- External Rotation 2+ Poor+ Internal Rotation 3+ Fair+ PT-OP-Q Treatments Start: 06/27/22 16:05 Freq: Status: Active Protocol: Document 08/28/22 16:00 DCW (Rec: 08/28/22 16:45 DCW [id number]) Cardio Equipment Upper Body Ergometer (UBE) Duration (Minutes) 5 Seat Position 12 Height 3 Other Forward/Backward Therapeutic Exercises Supine Exercises IR/ER Supine Exercise Name IR/ER at 90/90 Side left Resistance 2.2# yellow ball Serratus Punch Supine Exercise Name Serratus Punch Side bilateral Resistance 3# PROM L shld Supine Exercise Name FF up to 167? /c PVC Side bilateral Comments pain-free range Standing Exercises PNF D1/D2 Flexion Standing Exercise Name D1/D2 UE PNF Side left Resistance 3# Other Exercises Wall push-ups Other Exercise Name Wall push-ups Side bilateral Comments <> and W hand positions Wall ball Other Exercise Name Ball bounce against wall Side left Equipment Used Tennis Ball Wall slides Other Exercise Name Wall slides Side bilateral Resistance Red loop Resisted Ambulation Other Exercise Name Resisted UE Side-stepping Resistance Red loop Manual Therapy Treatment Soft Tissue Mobilization L arm Body Location L deltoid, tricep, bicep, pec, forearm flex/ext Mobilization Type Myofascial Release,Rolling Intensity/Depth Superficial Body Position Hooklying Comments manual gentle Joint Mobilizations L GH jt Direction AP, inf/sup Grade I Body Position Hooklying Comments gentle small painfree range PT-OP-R Modalities Start: 07/01/22 14:59 Freq: Status: Active Protocol: Document 07/11/22 09:04 SP (Rec: 07/11/22 09:51 SP [id number]) Hot Pack/Cold Pack Treatment cryocuff Location L shld Patient Position Sitting Treatment Duration (minutes) 10 Patient Tolerance Good Comments arm rested in lap- good PT-OP-T Assessment and Plan Start: 06/27/22 16:05 Freq: Status: Active Protocol: Document 08/28/22 16:00 DCW (Rec: 08/28/22 16:45 DCW [id number]) Physical Therapy Assessment Impairments Impairments Functional Activities, Functional Mobility,Pain, Posture,ROM,Soft Tissue Mobility,Strength Goals Two Impairment Pt completely limited with all PROM, per post-op protocol Short Term Goal (STG) Pt to exhibit advancement of PROM following post-op protocol, getting to 80? flexion PROM in order to advance to improving scapular mobility and work toward strengthening STG Duration Met Kitchen Help Handyman Goal (LTG) Pt to exhibit advancement of PROM following post-op protocol, getting to 120? flexion PROM LTG Duration 11/23/22 One Impairment Pt does not have an appropriate home exercise program Short Term Goal (STG) Pt to be independent and compliant with an appropriate PROM HEP STG Duration 11/23/22 Assessment Summary Assessment Pt experiencing increased fatigue and spasming, especially at work, following addition of some phase III activities. Discussed importance of not overdoing it and giving her arm enough time to rest and recover. Physical Therapy Plan Frequency and Duration Frequency of Treatment 2x/Week Plan of Care Start Date 08/25/22 Plan of Care End Date 11/23/22 Therapeutic Interventions Therapeutic Interventions Home Exercise Program,Joint Mobilizations,Manual Therapy, Neuromuscular Re-education, Patient/Caregiver Education, Self-Care/Home Management,Soft Tissue Mobilization, Therapeutic Activities, Therapeutic Exercises Modalities Cold Pack/Ice Massage,Electric Stimulation,Hot Packs, Ultrasound Next Visit Focus/Plan Next Note Type Treatment Note Next Visit Plan Progress AROM/resistance training, per post-op protocol
--- NOTE | 2022-09-03 16:47 | PT.OTN ---
Current Diagnoses Pain in left shoulder (09/03/22) Stiffness of left shoulder, not elsewhere classified (09/03/22) Superior glenoid labrum lesion of left shoulder, subsequent encounter (09/03/22) Physical Therapy Treatment Note PT-OP-A Visit Information Start: 06/27/22 16:05 Freq: Status: Active Protocol: Document 09/03/22 16:13 DCW (Rec: 09/03/22 16:47 DCW [id number]) Out-Patient Physical Therapy Visit Information Visit Information Visit Type Treatment Note Visit Note 13 minutes late Visit Start Time 16:13 Visit Stop Time 16:45 Total Visit Minutes 32 Visit Number 14 Number of INSURANCE ADJUSTOR Visits 0 Evaluation Information Evaluation Date 06/27/22 Precautions Precautions 07/25/22: Begin phase 2 Modalities Scapular/GH Mobilization R/C strengthening light T-band UBE PT-OP-B Current Condition Start: 06/27/22 16:05 Freq: Status: Active Protocol: Document 06/27/22 09:45 DCW (Rec: 06/27/22 16:33 DCW [id number]) Current Condition History of Current Condition Onset Date 01/22/22 DOI, 06/09/22 DOS Current Complaints Post-op SLAP lesion, type II, additional biceps repair/ anchoring History of Current Condition Pt is a 36 year old female presenting 2.5 weeks s/p surgical repair of Type II SLAP lesion, as well as a biceps repair/anchoring. 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 MRI revealed partial supraspinatus tear, SLAP lesion type II, extending into LH biceps tendon. Pt underwent arthroscopic surgical repair on 06/09/22. Pt was just informed at post-op follow-up on 06/24/22 to remain in sling for one additional month. Per protocol, do not begin PROM until three-week chi post-op. Pt currently performing some left elbow ROM and pendulums for HEP. Pt reports her is , so since the day following surgery, she has been largely needing to do everything by herself, including don/doff sling. PT-OP-C Subjective Start: 06/27/22 16:05 Freq: Status: Active Protocol: Document 09/03/22 16:13 DCW (Rec: 09/03/22 16:47 DCW [id number]) OP-PT Subjective Patient Comments Patient Comments I don't know if it feels better, or I'm just getting used to it now. PT-OP-K Range of Motion Start: 06/27/22 16:05 Freq: Status: Active Protocol: Document 08/25/22 16:45 DCW (Rec: 08/25/22 16:54 DCW [id number]) Shoulder Goniometric Range of Motion Shoulder Left Active Testing Position Sitting Flexion 94 Abduction 83 External Rotation at 0 degrees Abduction 34 Internal Rotation Behind Back (text) Left SI Left Passive Testing Position Sitting Flexion 111 Abduction 82 External Rotation at 0 degrees Abduction 23 Elbow/Forearm Range of Motion Elbow/Forearm Left Active Elbow/Forearm ROM WFL Yes ROM Testing Position Sitting Elbow Flexion (degrees) 140 Elbow Extension (degrees) 0 PT-OP-M Strength Start: 06/27/22 16:05 Freq: Status: Active Protocol: Document 08/25/22 16:45 DCW (Rec: 08/25/22 16:54 DCW [id number]) Shoulder Strength Shoulder Manual Muscle Testing Left Flexion 3- Fair- Abduction (C5) 3- Fair- External Rotation 2+ Poor+ Internal Rotation 3+ Fair+ PT-OP-Q Treatments Start: 06/27/22 16:05 Freq: Status: Active Protocol: Document 09/03/22 16:13 DCW (Rec: 09/03/22 16:47 DCW [id number]) Cardio Equipment Upper Body Ergometer (UBE) Duration (Minutes) 6 Seat Position 12 Height 4.5 Other Forward/Backward Therapeutic Exercises Standing Exercises PNF D1/D2 Flexion Standing Exercise Name D1/D2 UE PNF Side left Resistance 3# Curls Standing Exercise Name Biceps curls/reverse curls Side bilateral Resistance 5# Flexion Standing Exercise Name Shoulder Flexion Side left Resistance 5# Comments VCs to limit trunk side- bending Other Exercises Wall push-ups Other Exercise Name Wall push-ups Side bilateral Comments <> and W hand positions Wall ball Other Exercise Name Ball bounce against wall Side left Equipment Used Tennis Ball Wall slides Other Exercise Name Wall slides Side bilateral Resistance Green loop Resisted Ambulation Other Exercise Name Resisted UE Side-stepping Resistance Red loop Therapeutic Activity Therapeutic Activity Cart Pushing Name Pushing/pulling weights (30#) on mobile desk Comments Mimic job duties pushing med cart Lifting Comments Body mechanis with lifting weights, box (5#) PT-OP-R Modalities Start: 07/01/22 14:59 Freq: Status: Active Protocol: Document 07/11/22 09:04 SP (Rec: 07/11/22 09:51 SP [id number]) Hot Pack/Cold Pack Treatment cryocuff Location L shld Patient Position Sitting Treatment Duration (minutes) 10 Patient Tolerance Good Comments arm rested in lap- good PT-OP-T Assessment and Plan Start: 06/27/22 16:05 Freq: Status: Active Protocol: Document 09/03/22 16:13 DCW (Rec: 09/03/22 16:47 DCW [id number]) Physical Therapy Assessment Impairments Impairments Functional Activities, Functional Mobility,Pain, Posture,ROM,Soft Tissue Mobility,Strength Goals Two Impairment Pt completely limited with all PROM, per post-op protocol Short Term Goal (STG) Pt to exhibit advancement of PROM following post-op protocol, getting to 80? flexion PROM in order to advance to improving scapular mobility and work toward strengthening STG Duration Met Halfway Goal (LTG) Pt to exhibit advancement of PROM following post-op protocol, getting to 120? flexion PROM LTG Duration 11/23/22 One Impairment Pt does not have an appropriate home exercise program Short Term Goal (STG) Pt to be independent and compliant with an appropriate PROM HEP STG Duration 11/23/22 Assessment Summary Assessment Trial of pushing/pulling today in effort to mimic job conditions, pt able to push and pull wheeled cart and lift weighted (5#) box without increased pain. Still struggling with overhead movements, continue to work on strengthening and pain-free ROM Physical Therapy Plan Frequency and Duration Frequency of Treatment 2x/Week Plan of Care Start Date 08/25/22 Plan of Care End Date 11/23/22 Therapeutic Interventions Therapeutic Interventions Home Exercise Program,Joint Mobilizations,Manual Therapy, Neuromuscular Re-education, Patient/Caregiver Education, Self-Care/Home Management,Soft Tissue Mobilization, Therapeutic Activities, Therapeutic Exercises Modalities Cold Pack/Ice Massage,Electric Stimulation,Hot Packs, Ultrasound Next Visit Focus/Plan Next Note Type Treatment Note Next Visit Plan Progress AROM/resistance training, per post-op protocol
--- NOTE | 2022-09-05 13:58 | PT.OTN ---
Current Diagnoses Pain in left shoulder (09/05/22) Stiffness of left shoulder, not elsewhere classified (09/05/22) Superior glenoid labrum lesion of left shoulder, subsequent encounter (09/05/22) Physical Therapy Treatment Note PT-OP-A Visit Information Start: 06/27/22 16:05 Freq: Status: Active Protocol: Document 09/05/22 11:12 SW (Rec: 09/05/22 13:51 SW [id number]) Out-Patient Physical Therapy Visit Information Visit Information Visit Type Treatment Note Visit Start Time 11:16 Visit Stop Time 12:55 Total Visit Minutes 39 Visit Number 15 Number of INSPECTION MANAGER Visits 1 PT-OP-B Current Condition Start: 06/27/22 16:05 Freq: Status: Active Protocol: Document 06/27/22 09:45 DCW (Rec: 06/27/22 16:33 DCW [id number]) Current Condition History of Current Condition Onset Date 01/22/22 DOI, 06/09/22 DOS Current Complaints Post-op SLAP lesion, type II, additional biceps repair/ anchoring History of Current Condition Pt is a 36 year old female presenting 2.5 weeks s/p surgical repair of Type II SLAP lesion, as well as a biceps repair/anchoring. 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 MRI revealed partial supraspinatus tear, SLAP lesion type II, extending into LH biceps tendon. Pt underwent arthroscopic surgical repair on 06/09/22. Pt was just informed at post-op follow-up on 06/24/22 to remain in sling for one additional month. Per protocol, do not begin PROM until three-week chi post-op. Pt currently performing some left elbow ROM and pendulums for HEP. Pt reports her is , so since the day following surgery, she has been largely needing to do everything by herself, including don/doff sling. PT-OP-C Subjective Start: 06/27/22 16:05 Freq: Status: Active Protocol: Document 09/05/22 11:12 SW (Rec: 09/05/22 13:51 SW [id number]) OP-PT Subjective Patient Comments Patient Comments Pt reports soreness post last sesion. PT-OP-K Range of Motion Start: 06/27/22 16:05 Freq: Status: Active Protocol: Document 08/25/22 16:45 DCW (Rec: 08/25/22 16:54 DCW [id number]) Shoulder Goniometric Range of Motion Shoulder Left Active Testing Position Sitting Flexion 94 Abduction 83 External Rotation at 0 degrees Abduction 34 Internal Rotation Behind Back (text) Left SI Left Passive Testing Position Sitting Flexion 111 Abduction 82 External Rotation at 0 degrees Abduction 23 Elbow/Forearm Range of Motion Elbow/Forearm Left Active Elbow/Forearm ROM WFL Yes ROM Testing Position Sitting Elbow Flexion (degrees) 140 Elbow Extension (degrees) 0 PT-OP-M Strength Start: 06/27/22 16:05 Freq: Status: Active Protocol: Document 08/25/22 16:45 DCW (Rec: 08/25/22 16:54 DCW [id number]) Shoulder Strength Shoulder Manual Muscle Testing Left Flexion 3- Fair- Abduction (C5) 3- Fair- External Rotation 2+ Poor+ Internal Rotation 3+ Fair+ PT-OP-Q Treatments Start: 06/27/22 16:05 Freq: Status: Active Protocol: Document 09/05/22 11:12 SW (Rec: 09/05/22 13:51 SW [id number]) Cardio Equipment Upper Body Ergometer (UBE) Duration (Minutes) 6 Seat Position 12 Height 4.5 Other Forward/Backward, dc'd backward d/t pain Therapeutic Exercises Supine Exercises Shld wand stretch Supine Exercise Name Scapular/frontal plane Side bilateral Equipment Used Red Wand Reps/Minutes 3x30 sec hold Comments L shld mm quick to fatigue, instructed to push to just before pain IR/ER Supine Exercise Name IR/ER at 90/90 Side left Resistance 2.2# yellow ball Serratus Punch Supine Exercise Name Serratus Punch Side left Resistance 3# Reps/Minutes 3x10 Standing Exercises PNF D1/D2 Flexion Standing Exercise Name D1/D2 UE PNF Side left Resistance 3# Curls Standing Exercise Name Biceps curls/reverse curls Side bilateral Resistance 5# curls, 3# reverse Reps/Minutes 10 x each Comments VC for posture, and engagement of scapular retractors/ depressors Abduction Standing Exercise Name Shoulder Abduction Side left Resistance 5# weight Comments Vc for lateral bending compensation Flexion Standing Exercise Name Shoulder flexion, Scapular plain Side left Resistance 5# Comments VCs to limit trunk side- bending Other Exercises Wall slides 2 Other Exercise Name Scapular plane Side bilateral Equipment Used yellow theraband Reps/Minutes 2 x 10 Wall slides Other Exercise Name Wall slides Side bilateral Resistance Green loop Reps/Minutes 2 x 10 Comments VC for Serratus activation PT-OP-R Modalities Start: 07/01/22 14:59 Freq: Status: Active Protocol: Document 07/11/22 09:04 SP (Rec: 07/11/22 09:51 SP [id number]) Hot Pack/Cold Pack Treatment cryocuff Location L shld Patient Position Sitting Treatment Duration (minutes) 10 Patient Tolerance Good Comments arm rested in lap- good PT-OP-T Assessment and Plan Start: 06/27/22 16:05 Freq: Status: Active Protocol: Document 09/05/22 11:12 SW (Rec: 09/05/22 13:51 SW [id number]) Physical Therapy Assessment Goals Two Impairment Pt completely limited with all PROM, per post-op protocol Short Term Goal (STG) Pt to exhibit advancement of PROM following post-op protocol, getting to 80? flexion PROM in order to advance to improving scapular mobility and work toward strengthening STG Duration Met Mcfp Goal (LTG) Pt to exhibit advancement of PROM following post-op protocol, getting to 120? flexion PROM LTG Duration 11/23/22 One Impairment Pt does not have an appropriate home exercise program Short Term Goal (STG) Pt to be independent and compliant with an appropriate PROM HEP STG Duration 11/23/22 Assessment Summary Assessment Pt. reported to session with residual mm soreness. Continued strengthening exercises today, mm quick to fatigue and residual mm soreness/discomfort, took it easier today with strengthening. Physical Therapy Plan Frequency and Duration Frequency of Treatment 2x/Week Plan of Care Start Date 08/25/22 Plan of Care End Date 11/23/22
--- NOTE | 2022-09-08 16:45 | PT.OTN ---
Current Diagnoses Pain in left shoulder (09/08/22) Stiffness of left shoulder, not elsewhere classified (09/08/22) Superior glenoid labrum lesion of left shoulder, subsequent encounter (09/08/22) Physical Therapy Treatment Note PT-OP-A Visit Information Start: 06/27/22 16:05 Freq: Status: Active Protocol: Document 09/08/22 16:00 DCW (Rec: 09/08/22 16:45 DCW [id number]) Out-Patient Physical Therapy Visit Information Visit Information Visit Type Treatment Note Visit Start Time 16:00 Visit Stop Time 16:45 Total Visit Minutes 45 Visit Number 16 Number of AUTOMOTIVE SERVICE TECHNICIAN Visits 0 Evaluation Information Evaluation Date 06/27/22 Precautions Precautions 07/25/22: Begin phase 2 Modalities Scapular/GH Mobilization R/C strengthening light T-band UBE PT-OP-B Current Condition Start: 06/27/22 16:05 Freq: Status: Active Protocol: Document 06/27/22 09:45 DCW (Rec: 06/27/22 16:33 DCW [id number]) Current Condition History of Current Condition Onset Date 01/22/22 DOI, 06/09/22 DOS Current Complaints Post-op SLAP lesion, type II, additional biceps repair/ anchoring History of Current Condition Pt is a 36 year old female presenting 2.5 weeks s/p surgical repair of Type II SLAP lesion, as well as a biceps repair/anchoring. 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 MRI revealed partial supraspinatus tear, SLAP lesion type II, extending into LH biceps tendon. Pt underwent arthroscopic surgical repair on 06/09/22. Pt was just informed at post-op follow-up on 06/24/22 to remain in sling for one additional month. Per protocol, do not begin PROM until three-week chi post-op. Pt currently performing some left elbow ROM and pendulums for HEP. Pt reports her is , so since the day following surgery, she has been largely needing to do everything by herself, including don/doff sling. PT-OP-C Subjective Start: 06/27/22 16:05 Freq: Status: Active Protocol: Document 09/08/22 16:00 DCW (Rec: 09/08/22 16:45 DCW [id number]) OP-PT Subjective Patient Comments Patient Comments I think it's been sore because between here and work, I do a lot of the wall exercises, and I'm probably overdoing it a bit. PT-OP-K Range of Motion Start: 06/27/22 16:05 Freq: Status: Active Protocol: Document 08/25/22 16:45 DCW (Rec: 08/25/22 16:54 DCW [id number]) Shoulder Goniometric Range of Motion Shoulder Left Active Testing Position Sitting Flexion 94 Abduction 83 External Rotation at 0 degrees Abduction 34 Internal Rotation Behind Back (text) Left SI Left Passive Testing Position Sitting Flexion 111 Abduction 82 External Rotation at 0 degrees Abduction 23 Elbow/Forearm Range of Motion Elbow/Forearm Left Active Elbow/Forearm ROM WFL Yes ROM Testing Position Sitting Elbow Flexion (degrees) 140 Elbow Extension (degrees) 0 PT-OP-M Strength Start: 06/27/22 16:05 Freq: Status: Active Protocol: Document 08/25/22 16:45 DCW (Rec: 08/25/22 16:54 DCW [id number]) Shoulder Strength Shoulder Manual Muscle Testing Left Flexion 3- Fair- Abduction (C5) 3- Fair- External Rotation 2+ Poor+ Internal Rotation 3+ Fair+ PT-OP-Q Treatments Start: 06/27/22 16:05 Freq: Status: Active Protocol: Document 09/08/22 16:00 DCW (Rec: 09/08/22 16:45 DCW [id number]) Cardio Equipment Upper Body Ergometer (UBE) Duration (Minutes) 6 Seat Position 12 Height 4.5 Other Forward/Backward Therapeutic Exercises Supine Exercises Shld wand stretch Supine Exercise Name Scapular/frontal plane Side bilateral Equipment Used Wand Reps/Minutes 3x30 sec hold IR/ER Supine Exercise Name IR/ER at 90/90 Side left Resistance 3.3# red ball Serratus Punch Supine Exercise Name Serratus Punch Side left Resistance 3# Reps/Minutes 3x10 Standing Exercises PNF D1/D2 Flexion Standing Exercise Name D1/D2 UE PNF Side left Resistance 3# Curls Standing Exercise Name Biceps curls/reverse curls Side bilateral Resistance 5# Flexion Standing Exercise Name Shoulder Flexion Side left Resistance 5# Comments VCs to limit trunk side- bending Other Exercises Wall push-ups Other Exercise Name Wall push-ups Side bilateral Comments <> and W hand positions Wall slides Other Exercise Name Wall slides Side bilateral Resistance Yellow loop Resisted Ambulation Other Exercise Name Resisted UE Side-stepping Resistance Yellow loop Manual Therapy Treatment Soft Tissue Mobilization L arm Body Location L deltoid, tricep, bicep, pec, forearm flex/ext Mobilization Type Myofascial Release,Rolling Intensity/Depth Superficial Body Position Hooklying Comments manual gentle PT-OP-R Modalities Start: 07/01/22 14:59 Freq: Status: Active Protocol: Document 07/11/22 09:04 SP (Rec: 07/11/22 09:51 SP [id number]) Hot Pack/Cold Pack Treatment cryocuff Location L shld Patient Position Sitting Treatment Duration (minutes) 10 Patient Tolerance Good Comments arm rested in lap- good PT-OP-T Assessment and Plan Start: 06/27/22 16:05 Freq: Status: Active Protocol: Document 09/08/22 16:00 DCW (Rec: 09/08/22 16:45 DCW [id number]) Physical Therapy Assessment Impairments Impairments Functional Activities, Functional Mobility,Pain, Posture,ROM,Soft Tissue Mobility,Strength Goals Two Impairment Pt completely limited with all PROM, per post-op protocol Short Term Goal (STG) Pt to exhibit advancement of PROM following post-op protocol, getting to 80? flexion PROM in order to advance to improving scapular mobility and work toward strengthening STG Duration Met Radiotelephone Technical Operator Goal (LTG) Pt to exhibit advancement of PROM following post-op protocol, getting to 120? flexion PROM LTG Duration 11/23/22 One Impairment Pt does not have an appropriate home exercise program Short Term Goal (STG) Pt to be independent and compliant with an appropriate PROM HEP STG Duration 11/23/22 Assessment Summary Assessment Pt showing improved tolerance to activity, able to perform slightly more exercise before arm begins shaking and fatiguing. Physical Therapy Plan Frequency and Duration Frequency of Treatment 2x/Week Plan of Care Start Date 08/25/22 Plan of Care End Date 11/23/22 Therapeutic Interventions Therapeutic Interventions Home Exercise Program,Joint Mobilizations,Manual Therapy, Neuromuscular Re-education, Patient/Caregiver Education, Self-Care/Home Management,Soft Tissue Mobilization, Therapeutic Activities, Therapeutic Exercises Modalities Cold Pack/Ice Massage,Electric Stimulation,Hot Packs, Ultrasound Next Visit Focus/Plan Next Note Type Treatment Note Next Visit Plan Progress AROM/resistance training, per post-op protocol
--- NOTE | 2022-09-10 16:45 | PT.OTN ---
Current Diagnoses Pain in left shoulder (09/10/22) Stiffness of left shoulder, not elsewhere classified (09/10/22) Superior glenoid labrum lesion of left shoulder, subsequent encounter (09/10/22) Physical Therapy Treatment Note PT-OP-A Visit Information Start: 06/27/22 16:05 Freq: Status: Active Protocol: Document 09/10/22 16:00 DCW (Rec: 09/10/22 16:45 DCW [id number]) Out-Patient Physical Therapy Visit Information Visit Information Visit Type Treatment Note Visit Start Time 16:00 Visit Stop Time 16:45 Total Visit Minutes 45 Visit Number 17 Number of NICKEL PLANT OPERATOR Visits 0 Evaluation Information Evaluation Date 06/27/22 Precautions Precautions 07/25/22: Begin phase 2 Modalities Scapular/GH Mobilization R/C strengthening light T-band UBE PT-OP-B Current Condition Start: 06/27/22 16:05 Freq: Status: Active Protocol: Document 06/27/22 09:45 DCW (Rec: 06/27/22 16:33 DCW [id number]) Current Condition History of Current Condition Onset Date 01/22/22 DOI, 06/09/22 DOS Current Complaints Post-op SLAP lesion, type II, additional biceps repair/ anchoring History of Current Condition Pt is a 36 year old female presenting 2.5 weeks s/p surgical repair of Type II SLAP lesion, as well as a biceps repair/anchoring. 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 MRI revealed partial supraspinatus tear, SLAP lesion type II, extending into LH biceps tendon. Pt underwent arthroscopic surgical repair on 06/09/22. Pt was just informed at post-op follow-up on 06/24/22 to remain in sling for one additional month. Per protocol, do not begin PROM until three-week chi post-op. Pt currently performing some left elbow ROM and pendulums for HEP. Pt reports her is , so since the day following surgery, she has been largely needing to do everything by herself, including don/doff sling. PT-OP-C Subjective Start: 06/27/22 16:05 Freq: Status: Active Protocol: Document 09/10/22 16:00 DCW (Rec: 09/10/22 16:45 DCW [id number]) OP-PT Subjective Patient Comments Patient Comments It's just been a long, rough day. PT-OP-K Range of Motion Start: 06/27/22 16:05 Freq: Status: Active Protocol: Document 08/25/22 16:45 DCW (Rec: 08/25/22 16:54 DCW [id number]) Shoulder Goniometric Range of Motion Shoulder Left Active Testing Position Sitting Flexion 94 Abduction 83 External Rotation at 0 degrees Abduction 34 Internal Rotation Behind Back (text) Left SI Left Passive Testing Position Sitting Flexion 111 Abduction 82 External Rotation at 0 degrees Abduction 23 Elbow/Forearm Range of Motion Elbow/Forearm Left Active Elbow/Forearm ROM WFL Yes ROM Testing Position Sitting Elbow Flexion (degrees) 140 Elbow Extension (degrees) 0 PT-OP-M Strength Start: 06/27/22 16:05 Freq: Status: Active Protocol: Document 08/25/22 16:45 DCW (Rec: 08/25/22 16:54 DCW [id number]) Shoulder Strength Shoulder Manual Muscle Testing Left Flexion 3- Fair- Abduction (C5) 3- Fair- External Rotation 2+ Poor+ Internal Rotation 3+ Fair+ PT-OP-Q Treatments Start: 06/27/22 16:05 Freq: Status: Active Protocol: Document 09/10/22 16:00 DCW (Rec: 09/10/22 16:45 DCW [id number]) Gym Equipment Therapeutic Ball Walk-outs Exercise Details Prone walk-outs Ball Size/Color Green - 65 cm Body Position Prone I's, Y's, T's Exercise Details Prone Hughston's Ball Size/Color Green - 65 cm 3# DBs Body Position Prone Therapeutic Exercises Other Exercises Wall push-ups Other Exercise Name Wall push-ups Side bilateral Comments <> and W hand positions Wall slides Other Exercise Name Wall slides Side bilateral Manual Therapy Treatment Soft Tissue Mobilization L arm Body Location L deltoid, tricep, bicep, pec, forearm flex/ext Mobilization Type Myofascial Release,Rolling Intensity/Depth Superficial Body Position Hooklying Comments manual gentle Joint Mobilizations L GH jt Direction AP, inf/sup Grade I Body Position Hooklying Comments gentle small painfree range PT-OP-R Modalities Start: 07/01/22 14:59 Freq: Status: Active Protocol: Document 07/11/22 09:04 SP (Rec: 07/11/22 09:51 SP [id number]) Hot Pack/Cold Pack Treatment cryocuff Location L shld Patient Position Sitting Treatment Duration (minutes) 10 Patient Tolerance Good Comments arm rested in lap- good PT-OP-T Assessment and Plan Start: 06/27/22 16:05 Freq: Status: Active Protocol: Document 09/10/22 16:00 DCW (Rec: 09/10/22 16:45 DCW [id number]) Physical Therapy Assessment Impairments Impairments Functional Activities, Functional Mobility,Pain, Posture,ROM,Soft Tissue Mobility,Strength Goals Two Impairment Pt completely limited with all PROM, per post-op protocol Short Term Goal (STG) Pt to exhibit advancement of PROM following post-op protocol, getting to 80? flexion PROM in order to advance to improving scapular mobility and work toward strengthening STG Duration Met Foreign Policy Officer Goal (LTG) Pt to exhibit advancement of PROM following post-op protocol, getting to 120? flexion PROM LTG Duration 11/23/22 One Impairment Pt does not have an appropriate home exercise program Short Term Goal (STG) Pt to be independent and compliant with an appropriate PROM HEP STG Duration 11/23/22 Assessment Summary Assessment Pt continues to experience notable pain and instability at upper-range flexion and abduction, but able to go farther without limb shaking and pain. Physical Therapy Plan Frequency and Duration Frequency of Treatment 2x/Week Plan of Care Start Date 08/25/22 Plan of Care End Date 11/23/22 Therapeutic Interventions Therapeutic Interventions Home Exercise Program,Joint Mobilizations,Manual Therapy, Neuromuscular Re-education, Patient/Caregiver Education, Self-Care/Home Management,Soft Tissue Mobilization, Therapeutic Activities, Therapeutic Exercises Modalities Cold Pack/Ice Massage,Electric Stimulation,Hot Packs, Ultrasound Next Visit Focus/Plan Next Note Type Treatment Note Next Visit Plan Progress AROM/resistance training, per post-op protocol
--- NOTE | 2022-09-19 16:02 | PT.OTN ---
Current Diagnoses Pain in left shoulder (09/19/22) Stiffness of left shoulder, not elsewhere classified (09/19/22) Superior glenoid labrum lesion of left shoulder, subsequent encounter (09/19/22) Physical Therapy Treatment Note PT-OP-A Visit Information Start: 06/27/22 16:05 Freq: Status: Active Protocol: Document 09/19/22 15:15 DCW (Rec: 09/19/22 16:02 DCW [id number]) Out-Patient Physical Therapy Visit Information Visit Information Visit Type Treatment Note Visit Start Time 15:15 Visit Stop Time 16:00 Total Visit Minutes 45 Visit Number 18 Number of ROLLER GOLD LEAF Visits 0 Evaluation Information Evaluation Date 06/27/22 Precautions Precautions 07/25/22: Begin phase 2 Modalities Scapular/GH Mobilization R/C strengthening light T-band UBE PT-OP-B Current Condition Start: 06/27/22 16:05 Freq: Status: Active Protocol: Document 06/27/22 09:45 DCW (Rec: 06/27/22 16:33 DCW [id number]) Current Condition History of Current Condition Onset Date 01/22/22 DOI, 06/09/22 DOS Current Complaints Post-op SLAP lesion, type II, additional biceps repair/ anchoring History of Current Condition Pt is a 36 year old female presenting 2.5 weeks s/p surgical repair of Type II SLAP lesion, as well as a biceps repair/anchoring. 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 MRI revealed partial supraspinatus tear, SLAP lesion type II, extending into LH biceps tendon. Pt underwent arthroscopic surgical repair on 06/09/22. Pt was just informed at post-op follow-up on 06/24/22 to remain in sling for one additional month. Per protocol, do not begin PROM until three-week chi post-op. Pt currently performing some left elbow ROM and pendulums for HEP. Pt reports her is , so since the day following surgery, she has been largely needing to do everything by herself, including don/doff sling. PT-OP-C Subjective Start: 06/27/22 16:05 Freq: Status: Active Protocol: Document 09/19/22 15:15 DCW (Rec: 09/19/22 16:02 DCW [id number]) OP-PT Subjective Patient Comments Patient Comments My shoulder is hurting, but I 've been up since 8:00 cleaning my house. PT-OP-K Range of Motion Start: 06/27/22 16:05 Freq: Status: Active Protocol: Document 08/25/22 16:45 DCW (Rec: 08/25/22 16:54 DCW [id number]) Shoulder Goniometric Range of Motion Shoulder Left Active Testing Position Sitting Flexion 94 Abduction 83 External Rotation at 0 degrees Abduction 34 Internal Rotation Behind Back (text) Left SI Left Passive Testing Position Sitting Flexion 111 Abduction 82 External Rotation at 0 degrees Abduction 23 Elbow/Forearm Range of Motion Elbow/Forearm Left Active Elbow/Forearm ROM WFL Yes ROM Testing Position Sitting Elbow Flexion (degrees) 140 Elbow Extension (degrees) 0 PT-OP-M Strength Start: 06/27/22 16:05 Freq: Status: Active Protocol: Document 08/25/22 16:45 DCW (Rec: 08/25/22 16:54 DCW [id number]) Shoulder Strength Shoulder Manual Muscle Testing Left Flexion 3- Fair- Abduction (C5) 3- Fair- External Rotation 2+ Poor+ Internal Rotation 3+ Fair+ PT-OP-Q Treatments Start: 06/27/22 16:05 Freq: Status: Active Protocol: Document 09/19/22 15:15 DCW (Rec: 09/19/22 16:02 DCW [id number]) Cardio Equipment Upper Body Ergometer (UBE) Duration (Minutes) 6 Seat Position 12 Height 4.5 Other Forward/Backward Therapeutic Exercises Supine Exercises Shld wand stretch Supine Exercise Name Scapular/frontal plane Side bilateral Equipment Used Wand Reps/Minutes 3x30 sec hold Standing Exercises PNF D1/D2 Flexion Standing Exercise Name D1/D2 UE PNF Side left Resistance 3# Curls Standing Exercise Name Biceps curls/reverse curls Side bilateral Resistance 10#/3# Flexion Standing Exercise Name Shoulder Flexion Side left Resistance 5# Comments VCs to limit trunk side- bending Other Exercises Wall push-ups Other Exercise Name Wall push-ups Side bilateral Comments <> and W hand positions Wall slides Other Exercise Name Wall slides Side bilateral Manual Therapy Treatment Soft Tissue Mobilization L arm Body Location L deltoid, tricep, bicep, pec, forearm flex/ext Mobilization Type Myofascial Release,Rolling Intensity/Depth Superficial Body Position Hooklying Comments manual gentle Joint Mobilizations L GH jt Direction AP, inf/sup Grade I Body Position Hooklying Comments gentle small painfree range PT-OP-R Modalities Start: 07/01/22 14:59 Freq: Status: Active Protocol: Document 07/11/22 09:04 SP (Rec: 07/11/22 09:51 SP [id number]) Hot Pack/Cold Pack Treatment cryocuff Location L shld Patient Position Sitting Treatment Duration (minutes) 10 Patient Tolerance Good Comments arm rested in lap- good PT-OP-T Assessment and Plan Start: 06/27/22 16:05 Freq: Status: Active Protocol: Document 09/19/22 15:15 DCW (Rec: 09/19/22 16:02 DCW [id number]) Physical Therapy Assessment Impairments Impairments Functional Activities, Functional Mobility,Pain, Posture,ROM,Soft Tissue Mobility,Strength Goals Two Impairment Pt completely limited with all PROM, per post-op protocol Short Term Goal (STG) Pt to exhibit advancement of PROM following post-op protocol, getting to 80? flexion PROM in order to advance to improving scapular mobility and work toward strengthening STG Duration Met Extruding Department Supervisor Goal (LTG) Pt to exhibit advancement of PROM following post-op protocol, getting to 120? flexion PROM LTG Duration 11/23/22 One Impairment Pt does not have an appropriate home exercise program Short Term Goal (STG) Pt to be independent and compliant with an appropriate PROM HEP STG Duration 11/23/22 Assessment Summary Assessment Pt continues to be fairly sore , tends to push herself at home. Took it a little easier today, tolerated treatment well. Still having some shaking/spasming in end-range flexion, but typically only when also into end-range abduction. Spasming stops when decreased abduction. Physical Therapy Plan Frequency and Duration Frequency of Treatment 2x/Week Plan of Care Start Date 08/25/22 Plan of Care End Date 11/23/22 Therapeutic Interventions Therapeutic Interventions Home Exercise Program,Joint Mobilizations,Manual Therapy, Neuromuscular Re-education, Patient/Caregiver Education, Self-Care/Home Management,Soft Tissue Mobilization, Therapeutic Activities, Therapeutic Exercises Modalities Cold Pack/Ice Massage,Electric Stimulation,Hot Packs, Ultrasound Next Visit Focus/Plan Next Note Type Treatment Note Next Visit Plan Progress AROM/resistance training, per post-op protocol
--- NOTE | 2022-09-22 16:31 | PT.OTN ---
Current Diagnoses Pain in left shoulder (09/22/22) Stiffness of left shoulder, not elsewhere classified (09/22/22) Superior glenoid labrum lesion of left shoulder, subsequent encounter (09/22/22) Physical Therapy Treatment Note PT-OP-A Visit Information Start: 06/27/22 16:05 Freq: Status: Active Protocol: Document 09/22/22 15:45 DCW (Rec: 09/22/22 16:31 DCW [id number]) Out-Patient Physical Therapy Visit Information Visit Information Visit Type Treatment Note Visit Start Time 15:45 Visit Stop Time 16:30 Total Visit Minutes 45 Visit Number 19 Number of MATERIAL HANDLING WAREHOUSE SUPERVISOR Visits 0 Evaluation Information Evaluation Date 06/27/22 Precautions Precautions 07/25/22: Begin phase 2 Modalities Scapular/GH Mobilization R/C strengthening light T-band UBE PT-OP-B Current Condition Start: 06/27/22 16:05 Freq: Status: Active Protocol: Document 06/27/22 09:45 DCW (Rec: 06/27/22 16:33 DCW [id number]) Current Condition History of Current Condition Onset Date 01/22/22 DOI, 06/09/22 DOS Current Complaints Post-op SLAP lesion, type II, additional biceps repair/ anchoring History of Current Condition Pt is a 36 year old female presenting 2.5 weeks s/p surgical repair of Type II SLAP lesion, as well as a biceps repair/anchoring. 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 MRI revealed partial supraspinatus tear, SLAP lesion type II, extending into LH biceps tendon. Pt underwent arthroscopic surgical repair on 06/09/22. Pt was just informed at post-op follow-up on 06/24/22 to remain in sling for one additional month. Per protocol, do not begin PROM until three-week chi post-op. Pt currently performing some left elbow ROM and pendulums for HEP. Pt reports her is , so since the day following surgery, she has been largely needing to do everything by herself, including don/doff sling. PT-OP-C Subjective Start: 06/27/22 16:05 Freq: Status: Active Protocol: Document 09/22/22 15:45 DCW (Rec: 09/22/22 16:31 NEW [id number]) OP-PT Subjective Patient Comments Patient Comments My shoulder [upper trap] is feeling really tight, maybe swollen. PT-OP-K Range of Motion Start: 06/27/22 16:05 Freq: Status: Active Protocol: Document 08/25/22 16:45 DCW (Rec: 08/25/22 16:54 NEW [id number]) Shoulder Goniometric Range of Motion Shoulder Left Active Testing Position Sitting Flexion 94 Abduction 83 External Rotation at 0 degrees Abduction 34 Internal Rotation Behind Back (text) Left SI Left Passive Testing Position Sitting Flexion 111 Abduction 82 External Rotation at 0 degrees Abduction 23 Elbow/Forearm Range of Motion Elbow/Forearm Left Active Elbow/Forearm ROM WFL Yes ROM Testing Position Sitting Elbow Flexion (degrees) 140 Elbow Extension (degrees) 0 PT-OP-M Strength Start: 06/27/22 16:05 Freq: Status: Active Protocol: Document 08/25/22 16:45 DCW (Rec: 08/25/22 16:54 NEW [id number]) Shoulder Strength Shoulder Manual Muscle Testing Left Flexion 3- Fair- Abduction (C5) 3- Fair- External Rotation 2+ Poor+ Internal Rotation 3+ Fair+ PT-OP-Q Treatments Start: 06/27/22 16:05 Freq: Status: Active Protocol: Document 09/22/22 15:45 DCW (Rec: 09/22/22 16:31 [facility] [id number]) Cardio Equipment Upper Body Ergometer (UBE) Duration (Minutes) 6 Seat Position 12 Height 4.5 Other Forward/Backward Gym Equipment Therapeutic Ball I's, Y's, T's Exercise Details Prone [place]'s Ball Size/Color Green - 65 cm 3# DBs Body Position Prone Therapeutic Exercises Standing Exercises PNF D1/D2 Flexion Standing Exercise Name D1/D2 UE PNF Side left Resistance 3# Curls Standing Exercise Name Biceps curls/reverse curls Side bilateral Resistance 10#/5# Flexion Standing Exercise Name Shoulder Flexion Side left Resistance 5# Comments VCs to limit trunk side- bending Other Exercises Wall push-ups Other Exercise Name Wall push-ups Side bilateral Comments <> and W hand positions Wall slides Other Exercise Name Wall slides Side bilateral Manual Therapy Treatment Soft Tissue Mobilization L arm Body Location L deltoid, tricep, bicep, pec, forearm flex/ext Mobilization Type Myofascial Release,Rolling Intensity/Depth Superficial Body Position Hooklying Comments manual gentle Joint Mobilizations L GH jt Direction AP, inf/sup Grade I Body Position Hooklying Comments gentle small painfree range PT-OP-R Modalities Start: 07/01/22 14:59 Freq: Status: Active Protocol: Document 07/11/22 09:04 SP (Rec: 07/11/22 09:51 SP [id number]) Hot Pack/Cold Pack Treatment cryocuff Location L shld Patient Position Sitting Treatment Duration (minutes) 10 Patient Tolerance Good Comments arm rested in lap- good PT-OP-T Assessment and Plan Start: 06/27/22 16:05 Freq: Status: Active Protocol: Document 09/22/22 15:45 DCW (Rec: 09/22/22 16:31 DCW [id number]) Physical Therapy Assessment Impairments Impairments Functional Activities, Functional Mobility,Pain, Posture,ROM,Soft Tissue Mobility,Strength Goals Two Impairment Pt completely limited with all PROM, per post-op protocol Short Term Goal (STG) Pt to exhibit advancement of PROM following post-op protocol, getting to 80? flexion PROM in order to advance to improving scapular mobility and work toward strengthening STG Duration Met [facility] Goal (LTG) Pt to exhibit advancement of PROM following post-op protocol, getting to 120? flexion PROM LTG Duration 11/23/22 One Impairment Pt does not have an appropriate home exercise program Short Term Goal (STG) Pt to be independent and compliant with an appropriate PROM HEP STG Duration 11/23/22 Assessment Summary Assessment Pt has follow up with surgeon tomorrow, overall doing well but still struggling with end- range in all planes. Continues to be most limited with internal rotation. Physical Therapy Plan Frequency and Duration Frequency of Treatment 2x/Week Plan of Care Start Date 08/25/22 Plan of Care End Date 11/23/22 Therapeutic Interventions Therapeutic Interventions Home Exercise Program,Joint Mobilizations,Manual Therapy, Neuromuscular Re-education, Patient/Caregiver Education, Self-Care/Home Management,Soft Tissue Mobilization, Therapeutic Activities, Therapeutic Exercises Modalities Cold Pack/Ice Massage,Electric Stimulation,Hot Packs, Ultrasound Next Visit Focus/Plan Next Note Type Treatment Note Next Visit Plan Progress AROM/resistance training, per post-op protocol
--- NOTE | 2022-09-24 16:36 | PT.OTN ---
Current Diagnoses Pain in left shoulder (09/24/22) Stiffness of left shoulder, not elsewhere classified (09/24/22) Superior glenoid labrum lesion of left shoulder, subsequent encounter (09/24/22) Physical Therapy Treatment Note PT-OP-A Visit Information Start: 06/27/22 16:05 Freq: Status: Active Protocol: Document 09/24/22 15:45 DCW (Rec: 09/24/22 16:35 DCW [id number]) Out-Patient Physical Therapy Visit Information Visit Information Visit Type Treatment Note Visit Start Time 15:45 Visit Stop Time 16:30 Total Visit Minutes 45 Visit Number 20 Number of APICULTURIST Visits 0 Evaluation Information Evaluation Date 06/27/22 Precautions Precautions 07/25/22: Begin phase 2 Modalities Scapular/GH Mobilization R/C strengthening light T-band UBE PT-OP-B Current Condition Start: 06/27/22 16:05 Freq: Status: Active Protocol: Document 06/27/22 09:45 DCW (Rec: 06/27/22 16:33 DCW [id number]) Current Condition History of Current Condition Onset Date 01/22/22 DOI, 06/09/22 DOS Current Complaints Post-op SLAP lesion, type II, additional biceps repair/ anchoring History of Current Condition Pt is a 36 year old female presenting 2.5 weeks s/p surgical repair of Type II SLAP lesion, as well as a biceps repair/anchoring. 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 MRI revealed partial supraspinatus tear, SLAP lesion type II, extending into LH biceps tendon. Pt underwent arthroscopic surgical repair on 06/09/22. Pt was just informed at post-op follow-up on 06/24/22 to remain in sling for one additional month. Per protocol, do not begin PROM until three-week chi post-op. Pt currently performing some left elbow ROM and pendulums for HEP. Pt reports her is , so since the day following surgery, she has been largely needing to do everything by herself, including don/doff sling. PT-OP-C Subjective Start: 06/27/22 16:05 Freq: Status: Active Protocol: Document 09/24/22 15:45 DCW (Rec: 09/24/22 16:35 DCW [id number]) OP-PT Subjective Patient Comments Patient Comments Pt reports her appointment with the ortho yesterday didn' t go as well as she hoped, she reports the surgeon was not happy with her active ROM, is giving her another six week to improve it before needing manipulation under anesthesia. PT-OP-K Range of Motion Start: 06/27/22 16:05 Freq: Status: Active Protocol: Document 08/25/22 16:45 DCW (Rec: 08/25/22 16:54 DCW [id number]) Shoulder Goniometric Range of Motion Shoulder Left Active Testing Position Sitting Flexion 94 Abduction 83 External Rotation at 0 degrees Abduction 34 Internal Rotation Behind Back (text) Left SI Left Passive Testing Position Sitting Flexion 111 Abduction 82 External Rotation at 0 degrees Abduction 23 Elbow/Forearm Range of Motion Elbow/Forearm Left Active Elbow/Forearm ROM WFL Yes ROM Testing Position Sitting Elbow Flexion (degrees) 140 Elbow Extension (degrees) 0 PT-OP-M Strength Start: 06/27/22 16:05 Freq: Status: Active Protocol: Document 08/25/22 16:45 DCW (Rec: 08/25/22 16:54 DCW [id number]) Shoulder Strength Shoulder Manual Muscle Testing Left Flexion 3- Fair- Abduction (C5) 3- Fair- External Rotation 2+ Poor+ Internal Rotation 3+ Fair+ PT-OP-Q Treatments Start: 06/27/22 16:05 Freq: Status: Active Protocol: Document 09/24/22 15:45 DCW (Rec: 09/24/22 16:35 DCW [id number]) Cardio Equipment Upper Body Ergometer (UBE) Duration (Minutes) 6 Seat Position 12 Height 4.5 Other Forward/Backward Gym Equipment Therapeutic Ball Perturbations Exercise Details Shoulders at 90 flexion, stabilize vs perturbations Ball Size/Color Red - 55 cm Body Position Supine I's, Y's, T's Exercise Details Prone Hughston's Ball Size/Color Green - 65 cm 3# DBs Body Position Prone Therapeutic Exercises Standing Exercises IR stretch Standing Exercise Name IR [place] left Manual Therapy Treatment Soft Tissue Mobilization L arm Body Location L deltoid, tricep, bicep, pec, forearm flex/ext Mobilization Type Myofascial Release,Rolling Intensity/Depth Superficial Body Position Hooklying Comments manual gentle Joint Mobilizations L GH jt Direction AP, inf/sup Grade I Body Position Hooklying Comments gentle small painfree range PT-OP-R Modalities Start: 07/01/22 14:59 Freq: Status: Active Protocol: Document 07/11/22 09:04 SP (Rec: 07/11/22 09:51 SP [id number]) Hot Pack/Cold Pack Treatment cryocuff Location L shld Patient Position Sitting Treatment Duration (minutes) 10 Patient Tolerance Good Comments arm rested in lap- good PT-OP-T Assessment and Plan Start: 06/27/22 16:05 Freq: Status: Active Protocol: Document 09/24/22 15:45 DCW (Rec: 09/24/22 16:35 DCW [id number]) Physical Therapy Assessment Impairments Impairments Functional Activities, Functional Mobility,Pain, Posture,ROM,Soft Tissue Mobility,Strength Goals Two Impairment Pt completely limited with all PROM, per post-op protocol Short Term Goal (STG) Pt to exhibit advancement of PROM following post-op protocol, getting to 80? flexion PROM in order to advance to improving scapular mobility and work toward strengthening STG Duration Met Web Master Goal (LTG) Pt to exhibit advancement of PROM following post-op protocol, getting to 120? flexion PROM LTG Duration 11/23/22 One Impairment Pt does not have an appropriate home exercise program Short Term Goal (STG) Pt to be independent and compliant with an appropriate PROM HEP STG Duration 11/23/22 Assessment Summary Assessment Passive ROM looking much better today, able to get flexion and abduction to largely WNL, IR even reaching T8 with use of bryn, which is a large improvement. Biggest limitation to active ROM is still just significant pain and weakness at end-range . Continue to work on strengthening to improve joint stability. Physical Therapy Plan Frequency and Duration Frequency of Treatment 2x/Week Plan of Care Start Date 08/25/22 Plan of Care End Date 11/23/22 Therapeutic Interventions Therapeutic Interventions Home Exercise Program,Joint Mobilizations,Manual Therapy, Neuromuscular Re-education, Patient/Caregiver Education, Self-Care/Home Management,Soft Tissue Mobilization, Therapeutic Activities, Therapeutic Exercises Modalities Cold Pack/Ice Massage,Electric Stimulation,Hot Packs, Ultrasound Next Visit Focus/Plan Next Note Type Treatment Note Next Visit Plan Progress AROM/resistance training, per post-op protocol
--- NOTE | 2022-09-30 16:30 | PT.OTN ---
Current Diagnoses Pain in left shoulder (09/30/22) Stiffness of left shoulder, not elsewhere classified (09/30/22) Superior glenoid labrum lesion of left shoulder, subsequent encounter (09/30/22) Physical Therapy Treatment Note PT-OP-A Visit Information Start: 06/27/22 16:05 Freq: Status: Active Protocol: Document 09/30/22 15:45 DCW (Rec: 09/30/22 16:29 DCW [id number]) Out-Patient Physical Therapy Visit Information Visit Information Visit Type Treatment Note Visit Start Time 15:45 Visit Stop Time 16:30 Total Visit Minutes 45 Visit Number 21 Number of PADDING GLUER Visits 0 Evaluation Information Evaluation Date 06/27/22 Precautions Precautions 07/25/22: Begin phase 2 Modalities Scapular/GH Mobilization R/C strengthening light T-band UBE PT-OP-B Current Condition Start: 06/27/22 16:05 Freq: Status: Active Protocol: Document 06/27/22 09:45 DCW (Rec: 06/27/22 16:33 DCW [id number]) Current Condition History of Current Condition Onset Date 01/22/22 DOI, 06/09/22 DOS Current Complaints Post-op SLAP lesion, type II, additional biceps repair/ anchoring History of Current Condition Pt is a 36 year old female presenting 2.5 weeks s/p surgical repair of Type II SLAP lesion, as well as a biceps repair/anchoring. 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 MRI revealed partial supraspinatus tear, SLAP lesion type II, extending into LH biceps tendon. Pt underwent arthroscopic surgical repair on 06/09/22. Pt was just informed at post-op follow-up on 06/24/22 to remain in sling for one additional month. Per protocol, do not begin PROM until three-week chi post-op. Pt currently performing some left elbow ROM and pendulums for HEP. Pt reports her is , so since the day following surgery, she has been largely needing to do everything by herself, including don/doff sling. PT-OP-C Subjective Start: 06/27/22 16:05 Freq: Status: Active Protocol: Document 09/30/22 15:45 DCW (Rec: 09/30/22 16:29 ALW [id number]) OP-PT Subjective Patient Comments Patient Comments I've been doing a lot, I can do this (lifts arm into flexion to 150?) and this ( reaches behind back to L3). I can also lift 70# with both hands, but I'm pretty sore after that. PT-OP-K Range of Motion Start: 06/27/22 16:05 Freq: Status: Active Protocol: Document 08/25/22 16:45 DCW (Rec: 08/25/22 16:54 ALW [id number]) Shoulder Goniometric Range of Motion Shoulder Left Active Testing Position Sitting Flexion 94 Abduction 83 External Rotation at 0 degrees Abduction 34 Internal Rotation Behind Back (text) Left SI Left Passive Testing Position Sitting Flexion 111 Abduction 82 External Rotation at 0 degrees Abduction 23 Elbow/Forearm Range of Motion Elbow/Forearm Left Active Elbow/Forearm ROM WFL Yes ROM Testing Position Sitting Elbow Flexion (degrees) 140 Elbow Extension (degrees) 0 PT-OP-M Strength Start: 06/27/22 16:05 Freq: Status: Active Protocol: Document 08/25/22 16:45 DCW (Rec: 08/25/22 16:54 ALW [id number]) Shoulder Strength Shoulder Manual Muscle Testing Left Flexion 3- Fair- Abduction (C5) 3- Fair- External Rotation 2+ Poor+ Internal Rotation 3+ Fair+ PT-OP-Q Treatments Start: 06/27/22 16:05 Freq: Status: Active Protocol: Document 09/30/22 15:45 DCW (Rec: 09/30/22 16:29 ALW [id number]) Cardio Equipment Upper Body Ergometer (UBE) Duration (Minutes) 6 Seat Position 8 Height 5 Other Forward/Backward Gym Equipment Therapeutic Ball Perturbations Exercise Details Shoulders at 90 flexion, stabilize vs perturbations Ball Size/Color Red - 55 cm Body Position Supine Walk-outs Exercise Details Prone walk-outs /c push-up Ball Size/Color Green - 65 cm Body Position Prone I's, Y's, T's Exercise Details Prone Hughston's Ball Size/Color Green - 65 cm 3# DBs Body Position Prone Manual Therapy Treatment Soft Tissue Mobilization L arm Body Location L deltoid, pec, UT, scap Mobilization Type Myofascial Release,Rolling Intensity/Depth Superficial Body Position Hooklying Comments manual gentle Joint Mobilizations L GH jt Direction AP, inf/sup Grade I Body Position Hooklying Comments gentle small painfree range PT-OP-R Modalities Start: 07/01/22 14:59 Freq: Status: Active Protocol: Document 07/11/22 09:04 SP (Rec: 07/11/22 09:51 SP [id number]) Hot Pack/Cold Pack Treatment cryocuff Location L shld Patient Position Sitting Treatment Duration (minutes) 10 Patient Tolerance Good Comments arm rested in lap- good PT-OP-T Assessment and Plan Start: 06/27/22 16:05 Freq: Status: Active Protocol: Document 09/30/22 15:45 DCW (Rec: 09/30/22 16:29 DCW [id number]) Physical Therapy Assessment Impairments Impairments Functional Activities, Functional Mobility,Pain, Posture,ROM,Soft Tissue Mobility,Strength Goals Two Impairment Pt completely limited with all PROM, per post-op protocol Short Term Goal (STG) Pt to exhibit advancement of PROM following post-op protocol, getting to 80? flexion PROM in order to advance to improving scapular mobility and work toward strengthening STG Duration Met Cloth Baler Goal (LTG) Pt to exhibit advancement of PROM following post-op protocol, getting to 120? flexion PROM LTG Duration 11/23/22 One Impairment Pt does not have an appropriate home exercise program Short Term Goal (STG) Pt to be independent and compliant with an appropriate PROM HEP STG Duration 11/23/22 Assessment Summary Assessment Significant improvement with AROM since last week, flexion to 150?, abduction to 125?, and ER to 55?. Physical Therapy Plan Frequency and Duration Frequency of Treatment 2x/Week Plan of Care Start Date 08/25/22 Plan of Care End Date 11/23/22 Therapeutic Interventions Therapeutic Interventions Home Exercise Program,Joint Mobilizations,Manual Therapy, Neuromuscular Re-education, Patient/Caregiver Education, Self-Care/Home Management,Soft Tissue Mobilization, Therapeutic Activities, Therapeutic Exercises Modalities Cold Pack/Ice Massage,Electric Stimulation,Hot Packs, Ultrasound Next Visit Focus/Plan Next Note Type Treatment Note Next Visit Plan Progress AROM/resistance training, per post-op protocol
--- NOTE | 2022-10-03 15:42 | PT.OTN ---
Current Diagnoses Pain in left shoulder (10/03/22) Stiffness of left shoulder, not elsewhere classified (10/03/22) Superior glenoid labrum lesion of left shoulder, subsequent encounter (10/03/22) Physical Therapy Treatment Note PT-OP-A Visit Information Start: 06/27/22 16:05 Freq: Status: Active Protocol: Document 10/03/22 15:00 DCW (Rec: 10/03/22 15:42 DCW [id number]) Out-Patient Physical Therapy Visit Information Visit Information Visit Type Treatment Note Visit Start Time 15:00 Visit Stop Time 15:45 Total Visit Minutes 45 Visit Number 22 Number of UTILIZATION REVIEW RN Visits 0 Evaluation Information Evaluation Date 06/27/22 PT-OP-B Current Condition Start: 06/27/22 16:05 Freq: Status: Active Protocol: Document 06/27/22 09:45 DCW (Rec: 06/27/22 16:33 DCW [id number]) Current Condition History of Current Condition Onset Date 01/22/22 DOI, 06/09/22 DOS Current Complaints Post-op SLAP lesion, type II, additional biceps repair/ anchoring History of Current Condition Pt is a 36 year old female presenting 2.5 weeks s/p surgical repair of Type II SLAP lesion, as well as a biceps repair/anchoring. 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 MRI revealed partial supraspinatus tear, SLAP lesion type II, extending into LH biceps tendon. Pt underwent arthroscopic surgical repair on 06/09/22. Pt was just informed at post-op follow-up on 06/24/22 to remain in sling for one additional month. Per protocol, do not begin PROM until three-week chi post-op. Pt currently performing some left elbow ROM and pendulums for HEP. Pt reports her is , so since the day following surgery, she has been largely needing to do everything by herself, including don/doff sling. PT-OP-C Subjective Start: 06/27/22 16:05 Freq: Status: Active Protocol: Document 10/03/22 15:00 DCW (Rec: 10/03/22 15:42 DCW [id number]) OP-PT Subjective Patient Comments Patient Comments Pt continues to feel significant improvement, no current complaints. PT-OP-K Range of Motion Start: 06/27/22 16:05 Freq: Status: Active Protocol: Document 08/25/22 16:45 DCW (Rec: 08/25/22 16:54 DCW [id number]) Shoulder Goniometric Range of Motion Shoulder Left Active Testing Position Sitting Flexion 94 Abduction 83 External Rotation at 0 degrees Abduction 34 Internal Rotation Behind Back (text) Left SI Left Passive Testing Position Sitting Flexion 111 Abduction 82 External Rotation at 0 degrees Abduction 23 Elbow/Forearm Range of Motion Elbow/Forearm Left Active Elbow/Forearm ROM WFL Yes ROM Testing Position Sitting Elbow Flexion (degrees) 140 Elbow Extension (degrees) 0 PT-OP-M Strength Start: 06/27/22 16:05 Freq: Status: Active Protocol: Document 08/25/22 16:45 DCW (Rec: 08/25/22 16:54 DCW [id number]) Shoulder Strength Shoulder Manual Muscle Testing Left Flexion 3- Fair- Abduction (C5) 3- Fair- External Rotation 2+ Poor+ Internal Rotation 3+ Fair+ PT-OP-Q Treatments Start: 06/27/22 16:05 Freq: Status: Active Protocol: Document 10/03/22 15:00 DCW (Rec: 10/03/22 15:42 DCW [id number]) Cardio Equipment Upper Body Ergometer (UBE) Duration (Minutes) 6 Seat Position 8 Height 5 Other Forward/Backward Gym Equipment Cable Column (Body Solid) Lat Pull Down Resistance 50# Therapeutic Ball Perturbations Exercise Details Shoulders at 90 flexion, stabilize vs perturbations Ball Size/Color Red - 55 cm Body Position Supine Walk-outs Exercise Details Prone walk-outs /c push-up Ball Size/Color Green - 65 cm Body Position Prone I's, Y's, T's Exercise Details Prone Hughston's Ball Size/Color Green - 65 cm 5# DBs Body Position Prone Therapeutic Exercises Standing Exercises IR stretch Standing Exercise Name IR Patti Side left Manual Therapy Treatment Soft Tissue Mobilization L arm Body Location L deltoid, pec, UT, scap Mobilization Type Myofascial Release,Rolling Intensity/Depth Superficial Body Position Hooklying Comments manual gentle Joint Mobilizations L GH jt Direction AP, inf/sup Grade I Body Position Hooklying Comments gentle painfree range PT-OP-R Modalities Start: 07/01/22 14:59 Freq: Status: Active Protocol: Document 07/11/22 09:04 SP (Rec: 07/11/22 09:51 SP [id number]) Hot Pack/Cold Pack Treatment cryocuff Location L shld Patient Position Sitting Treatment Duration (minutes) 10 Patient Tolerance Good Comments arm rested in lap- good PT-OP-T Assessment and Plan Start: 06/27/22 16:05 Freq: Status: Active Protocol: Document 10/03/22 15:00 DCW (Rec: 10/03/22 15:42 DCW [id number]) Physical Therapy Assessment Impairments Impairments Functional Activities, Functional Mobility,Pain, Posture,ROM,Soft Tissue Mobility,Strength Goals Two Impairment Pt completely limited with all PROM, per post-op protocol Short Term Goal (STG) Pt to exhibit advancement of PROM following post-op protocol, getting to 80? flexion PROM in order to advance to improving scapular mobility and work toward strengthening STG Duration Met Detention Goal (LTG) Pt to exhibit advancement of PROM following post-op protocol, getting to 120? flexion PROM LTG Duration 11/23/22 One Impairment Pt does not have an appropriate home exercise program Short Term Goal (STG) Pt to be independent and compliant with an appropriate PROM HEP STG Duration 11/23/22 Assessment Summary Assessment Pt continues to show very good improvements, ROM and activity levels returning to near PLOF. Physical Therapy Plan Frequency and Duration Frequency of Treatment 2x/Week Plan of Care Start Date 08/25/22 Plan of Care End Date 11/23/22 Therapeutic Interventions Therapeutic Interventions Home Exercise Program,Joint Mobilizations,Manual Therapy, Neuromuscular Re-education, Patient/Caregiver Education, Self-Care/Home Management,Soft Tissue Mobilization, Therapeutic Activities, Therapeutic Exercises Modalities Cold Pack/Ice Massage,Electric Stimulation,Hot Packs, Ultrasound Next Visit Focus/Plan Next Note Type Treatment Note Next Visit Plan Progress AROM/resistance training, per post-op protocol
--- NOTE | 2022-10-07 16:30 | PT.OTN ---
Current Diagnoses Pain in left shoulder (10/07/22) Stiffness of left shoulder, not elsewhere classified (10/07/22) Superior glenoid labrum lesion of left shoulder, subsequent encounter (10/07/22) Physical Therapy Treatment Note PT-OP-A Visit Information Start: 06/27/22 16:05 Freq: Status: Active Protocol: Document 10/07/22 15:49 DCW (Rec: 10/07/22 16:30 DCW [id number]) Out-Patient Physical Therapy Visit Information Visit Information Visit Type Treatment Note Visit Start Time 15:49 Visit Stop Time 16:30 Total Visit Minutes 41 Visit Number 23 Number of METAL WINDOW SCREEN ASSEMBLER Visits 0 Evaluation Information Evaluation Date 06/27/22 PT-OP-B Current Condition Start: 06/27/22 16:05 Freq: Status: Active Protocol: Document 06/27/22 09:45 DCW (Rec: 06/27/22 16:33 DCW [id number]) Current Condition History of Current Condition Onset Date 01/22/22 DOI, 06/09/22 DOS Current Complaints Post-op SLAP lesion, type II, additional biceps repair/ anchoring History of Current Condition Pt is a 36 year old female presenting 2.5 weeks s/p surgical repair of Type II SLAP lesion, as well as a biceps repair/anchoring. 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 MRI revealed partial supraspinatus tear, SLAP lesion type II, extending into LH biceps tendon. Pt underwent arthroscopic surgical repair on 06/09/22. Pt was just informed at post-op follow-up on 06/24/22 to remain in sling for one additional month. Per protocol, do not begin PROM until three-week chi post-op. Pt currently performing some left elbow ROM and pendulums for HEP. Pt reports her is , so since the day following surgery, she has been largely needing to do everything by herself, including don/doff sling. PT-OP-C Subjective Start: 06/27/22 16:05 Freq: Status: Active Protocol: Document 10/07/22 15:49 DCW (Rec: 10/07/22 16:30 DCW [id number]) OP-PT Subjective Patient Comments Patient Comments Pt continues to do well. Doing fairly complex weightlifting at home, with no increase in pain. PT-OP-K Range of Motion Start: 06/27/22 16:05 Freq: Status: Active Protocol: Document 08/25/22 16:45 DCW (Rec: 08/25/22 16:54 DCW [id number]) Shoulder Goniometric Range of Motion Shoulder Left Active Testing Position Sitting Flexion 94 Abduction 83 External Rotation at 0 degrees Abduction 34 Internal Rotation Behind Back (text) Left SI Left Passive Testing Position Sitting Flexion 111 Abduction 82 External Rotation at 0 degrees Abduction 23 Elbow/Forearm Range of Motion Elbow/Forearm Left Active Elbow/Forearm ROM WFL Yes ROM Testing Position Sitting Elbow Flexion (degrees) 140 Elbow Extension (degrees) 0 PT-OP-M Strength Start: 06/27/22 16:05 Freq: Status: Active Protocol: Document 08/25/22 16:45 DCW (Rec: 08/25/22 16:54 DCW [id number]) Shoulder Strength Shoulder Manual Muscle Testing Left Flexion 3- Fair- Abduction (C5) 3- Fair- External Rotation 2+ Poor+ Internal Rotation 3+ Fair+ PT-OP-Q Treatments Start: 06/27/22 16:05 Freq: Status: Active Protocol: Document 10/07/22 15:49 DCW (Rec: 10/07/22 16:30 DCW [id number]) Cardio Equipment Upper Body Ergometer (UBE) Duration (Minutes) 6 Seat Position 8 Height 5.5 Other Forward/Backward Gym Equipment Shuttle Rebound Ball Toss Exercise Details Green 500 g Therapeutic Ball Walk-outs Exercise Details Prone walk-outs /c push-up Ball Size/Color Green - 65 cm Body Position Prone I's, Y's, T's Exercise Details Prone Hughston's Ball Size/Color Green - 65 cm 5# DBs Body Position Prone Therapeutic Exercises Supine Exercises BOSU Walk-overs Supine Exercise Name BOSU walk-overs Standing Exercises Body blade Standing Exercise Name Flexion, Abduction, ER Side left Resistance Large BB IR stretch Standing Exercise Name IR Patti Side left Manual Therapy Treatment Soft Tissue Mobilization L arm Body Location L deltoid, pec, UT, scap Mobilization Type Myofascial Release,Rolling Intensity/Depth Superficial Body Position Hooklying Comments manual gentle Joint Mobilizations L GH jt Direction AP, inf/sup Grade I Body Position Hooklying Comments gentle painfree range PT-OP-R Modalities Start: 07/01/22 14:59 Freq: Status: Active Protocol: Document 07/11/22 09:04 SP (Rec: 07/11/22 09:51 SP [id number]) Hot Pack/Cold Pack Treatment cryocuff Location L shld Patient Position Sitting Treatment Duration (minutes) 10 Patient Tolerance Good Comments arm rested in lap- good PT-OP-T Assessment and Plan Start: 06/27/22 16:05 Freq: Status: Active Protocol: Document 10/07/22 15:49 DCW (Rec: 10/07/22 16:30 DCW [id number]) Physical Therapy Assessment Impairments Impairments Functional Activities, Functional Mobility,Pain, Posture,ROM,Soft Tissue Mobility,Strength Goals Two Impairment Pt completely limited with all PROM, per post-op protocol Short Term Goal (STG) Pt to exhibit advancement of PROM following post-op protocol, getting to 80? flexion PROM in order to advance to improving scapular mobility and work toward strengthening STG Duration Met Reactor Technician Goal (LTG) Pt to exhibit advancement of PROM following post-op protocol, getting to 120? flexion PROM LTG Duration 11/23/22 One Impairment Pt does not have an appropriate home exercise program Short Term Goal (STG) Pt to be independent and compliant with an appropriate PROM HEP STG Duration 11/23/22 Assessment Summary Assessment Pt continues to progress with ROM and strength, likely approaching discharge within the next few weeks. Physical Therapy Plan Frequency and Duration Frequency of Treatment 2x/Week Plan of Care Start Date 08/25/22 Plan of Care End Date 11/23/22 Therapeutic Interventions Therapeutic Interventions Home Exercise Program,Joint Mobilizations,Manual Therapy, Neuromuscular Re-education, Patient/Caregiver Education, Self-Care/Home Management,Soft Tissue Mobilization, Therapeutic Activities, Therapeutic Exercises Modalities Cold Pack/Ice Massage,Electric Stimulation,Hot Packs, Ultrasound Next Visit Focus/Plan Next Note Type Treatment Note Next Visit Plan Progress AROM/resistance training, per post-op protocol
--- NOTE | 2022-10-10 15:58 | PT.OTN ---
Current Diagnoses Pain in left shoulder (10/10/22) Stiffness of left shoulder, not elsewhere classified (10/10/22) Superior glenoid labrum lesion of left shoulder, subsequent encounter (10/10/22) Physical Therapy Treatment Note PT-OP-A Visit Information Start: 06/27/22 16:05 Freq: Status: Active Protocol: Document 10/10/22 15:30 DCW (Rec: 10/10/22 15:58 DCW [id number]) Out-Patient Physical Therapy Visit Information Visit Information Visit Type Treatment Note Visit Start Time 15:30 Visit Stop Time 16:00 Total Visit Minutes 30 Visit Number 24 Number of PARTS FACILITATOR Visits 0 Evaluation Information Evaluation Date 06/27/22 PT-OP-B Current Condition Start: 06/27/22 16:05 Freq: Status: Active Protocol: Document 06/27/22 09:45 DCW (Rec: 06/27/22 16:33 DCW [id number]) Current Condition History of Current Condition Onset Date 01/22/22 DOI, 06/09/22 DOS Current Complaints Post-op SLAP lesion, type II, additional biceps repair/ anchoring History of Current Condition Pt is a 36 year old female presenting 2.5 weeks s/p surgical repair of Type II SLAP lesion, as well as a biceps repair/anchoring. 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 MRI revealed partial supraspinatus tear, SLAP lesion type II, extending into LH biceps tendon. Pt underwent arthroscopic surgical repair on 06/09/22. Pt was just informed at post-op follow-up on 06/24/22 to remain in sling for one additional month. Per protocol, do not begin PROM until three-week chi post-op. Pt currently performing some left elbow ROM and pendulums for HEP. Pt reports her is , so since the day following surgery, she has been largely needing to do everything by herself, including don/doff sling. PT-OP-C Subjective Start: 06/27/22 16:05 Freq: Status: Active Protocol: Document 10/10/22 15:30 DCW (Rec: 10/10/22 15:58 DCW [id number]) OP-PT Subjective Patient Comments Patient Comments Pt doing very well, feels appropriate for today being last visit. PT-OP-K Range of Motion Start: 06/27/22 16:05 Freq: Status: Active Protocol: Document 10/10/22 15:30 DCW (Rec: 10/10/22 15:39 DCW [id number]) Shoulder Goniometric Range of Motion Shoulder Left Active Testing Position Standing Flexion 162 Abduction 158 External Rotation at 0 degrees Abduction 44 Internal Rotation Behind Back (text) T10 Left Passive Testing Position Sitting Flexion 168 Abduction 180 External Rotation at 0 degrees Abduction 55 Elbow/Forearm Range of Motion Elbow/Forearm Left Active Elbow/Forearm ROM WFL Yes ROM Testing Position Sitting Elbow Flexion (degrees) 140 Elbow Extension (degrees) 0 PT-OP-M Strength Start: 06/27/22 16:05 Freq: Status: Active Protocol: Document 10/10/22 15:30 DCW (Rec: 10/10/22 15:39 DCW [id number]) Shoulder Strength Shoulder Manual Muscle Testing Left Flexion 4+ Good+ Abduction (C5) 4+ Good+ External Rotation 4+ Good+ Internal Rotation 5 Normal PT-OP-Q Treatments Start: 06/27/22 16:05 Freq: Status: Active Protocol: Document 10/10/22 15:30 DCW (Rec: 10/10/22 15:58 DCW [id number]) Gym Equipment Shuttle Rebound Ball Toss Exercise Details Red 1000 g Therapeutic Ball I's, Y's, T's Exercise Details Prone Hughston's Ball Size/Color Green - 65 cm 5# DBs Body Position Prone Therapeutic Exercises Supine Exercises BOSU Plank Supine Exercise Name BOSU plank BOSU Walk-overs Supine Exercise Name BOSU walk-overs Manual Therapy Treatment Soft Tissue Mobilization L arm Body Location L deltoid, pec, UT, scap Mobilization Type Myofascial Release,Rolling Intensity/Depth Superficial Body Position Hooklying Comments manual gentle PT-OP-R Modalities Start: 07/01/22 14:59 Freq: Status: Active Protocol: Document 07/11/22 09:04 SP (Rec: 07/11/22 09:51 SP [id number]) Hot Pack/Cold Pack Treatment cryocuff Location L shld Patient Position Sitting Treatment Duration (minutes) 10 Patient Tolerance Good Comments arm rested in lap- good PT-OP-T Assessment and Plan Start: 06/27/22 16:05 Freq: Status: Active Protocol: Document 10/10/22 15:30 DCW (Rec: 10/10/22 15:58 DCW [id number]) Physical Therapy Assessment Impairments Impairments Functional Activities, Functional Mobility,Pain, Posture,ROM,Soft Tissue Mobility,Strength Goals Two Impairment Pt completely limited with all PROM, per post-op protocol Short Term Goal (STG) Pt to exhibit advancement of PROM following post-op protocol, getting to 80? flexion PROM in order to advance to improving scapular mobility and work toward strengthening STG Duration Met Half-Way Goal (LTG) Pt to exhibit advancement of PROM following post-op protocol, getting to 120? flexion PROM LTG Duration Met One Impairment Pt does not have an appropriate home exercise program Short Term Goal (STG) Pt to be independent and compliant with an appropriate PROM HEP STG Duration Met Progress Towards Goals Progress Towards Goals Goals Met Assessment Summary Assessment Pt has met all goals, returned to normal daily activities with no limitations. Pt appropriate for discharge at this time. Physical Therapy Plan Frequency and Duration Frequency of Treatment 2x/Week Plan of Care Start Date 08/25/22 Plan of Care End Date 11/23/22 Therapeutic Interventions Therapeutic Interventions Home Exercise Program,Joint Mobilizations,Manual Therapy, Neuromuscular Re-education, Patient/Caregiver Education, Self-Care/Home Management,Soft Tissue Mobilization, Therapeutic Activities, Therapeutic Exercises Modalities Cold Pack/Ice Massage,Electric Stimulation,Hot Packs, Ultrasound Discharge Physical Therapy Discharge Reasons Goals Met Next Visit Focus/Plan Next Note Type Discharge Summary
== END 2022-10-15 09:07 | disposition home or self-care (01) ==
LOC: PHYS 15:15
PROVIDERS: Family Provider Nurse Practitioner Family; PCP Nurse Practitioner Family; Referring Provider Orthopaedic Surgery; Visit Provider Orthopaedic Surgery
DX: S43.432D Superior glenoid labrum lesion of left shoulder, subsequent encounter (principal); M25.512 Pain in left shoulder; M25.612 Stiffness of left shoulder, not elsewhere classified
CPT/HCPCS: 97010; 97110; 97140; 97161

== ENCOUNTER 2022-10-21 09:11 | Emergency (ER) | payer OTHER, SELFPAY ==
[2022-10-21] VITALS (8 sets, daily range): BP systolic 116–153; BP diastolic 79–80; PULSE 64–95; RESP 18–29; TEMP 36.3; O2SAT 97–100; BMI 26.4
--- NOTE | 2022-10-21 09:19 | DI.RAD.S_ITS ---
PROCEDURE: XR CHEST 1V INDICATIONS: chest pain TECHNIQUE: One view of the chest was acquired. COMPARISON: None. FINDINGS: Surgical changes and devices: None. Lungs and pleura: Lungs are clear. No pleural effusions or pneumothorax. Mediastinum: Mediastinal contours appear normal. Heart size is normal. Bones and chest wall: No suspicious bony lesions. Overlying soft tissues appear unremarkable. IMPRESSION: No acute cardiopulmonary findings. Dictated by: Colette Macias M.D. on 10/21/2022 at 9:44 Approved by: Colette Macias M.D. on 10/21/2022 at 9:44
[2022-10-21 09:30] LABS: Add Manual Diff / Slide Review NO; Basophils Absolute Auto 100 /uL (0-100); Basophils Percent Auto 0.8 % (0-2); Eosinophils Absolute Auto 300 /uL (0-450); Eosinophils Percent Auto 3.1 % (2-4); Hemoglobin 14.4 g/dL (12.0-16.0); Lymphocytes Absolute Auto 3200 /uL (1100-4500); Lymphocytes Percent Auto 36.4 % (25-40); Mean Corpuscular HGB Conc 34.3 % (30-36); Mean Corpuscular Hemoglobin 30.1 PG (26-34); Mean Corpuscular Volume 87.9 fL (80-100); Monocytes Absolute Auto 300 /uL (0-900); Monocytes Percent Auto 3.5 % (3-14); Neutrophils Absolute Auto 5000 /uL (1500-7000); Neutrophils Percent Auto 56.2 % (50-75); Platelet Count 152 X10^3/uL (150-400); Red Blood Cell Count 4.78 X10^6/uL (4.0-5.2); Red Cell Distribution Width 13.3 % (11.6-14.8); White Blood Cell Count 8.9 X10^3/uL (4.5-11.0)
[2022-10-21 09:43] LABS: INR 1.1 (0.9-1.3); Prothrombin Time 12.7 SECONDS (10.1-12.7)
--- NOTE | 2022-10-21 09:44 | ED_ITS ---
HPI - Chest Pain General Chief Complaint: Chest Pain Stated Complaint: sent by KASEY Parisi/zoie Heartrate/BP 142/97 Time Seen by Provider: 10/21/22 09:44 Source: patient Mode of arrival: Ambulatory Limitations: no limitations History of Present Illness HPI narrative: Patient here for multiple complaints. Three weeks ago started with palpitations. Her heart rate would wax and wane, heart rate would go up to as h igh as 180. At rest sometimes it is at 99. Sometimes elevates when she exercises/jogs. Denies any exertional chest pain or dyspnea with this. At times she will get discoloration to her lips as well as fingers and toes. She states they turn blue. Sometimes she has left-sided headache. She wears a smart watch in it monitors her heart rate. She states her blood pressure has been elevated as high as 140/90. This is high for her. She sees a provider [facility] the [facility]. However she had appointment today at 3:30 a.m. and was informed by the office to come here for evaluation. She did go online the web, for a provider to do blood work. Patient states she is adopted and does not know her family. She is not on any prescribed medications. She does not do drugs or drink alcohol. She does smoke. No known history of thyroid disease. She states she in [place] she had visit to the emergency department 3 hours and was informed that she had a ?heart attack? but was discharged after 3 hours. No stress test heart catheterization was done. One month later she stayed overnight at another hospital and had stress test and echocardiogram which she says was normal. She states they found a murmur on the echocardiogram. She states she is scheduled for a heart monitor by the online provider. No prior history of blood clots in legs or lungs Related Data Allergies Allergy/AdvReac Type Severity Reaction Status Date / Time varenicline [From Chantix] Allergy Verified 10/21/22 09:20 Review of Systems Review of Systems Narrative: GENERAL: negative chills, fatigue, malaise, fever, sweats. HEENT: negative sinus pain, ear pain, sore throat RESPIRATORY: negative dyspnea, cough CARDIOVASCULAR: Positive chest pain, palpitations GASTROINTESTINAL: negative nausea, vomiting, abdominal pain : negative dysuria, frequency, hematuria MUSCULOSKELETAL: negative muscle or bony pain SKIN: negative rash, skin lesions NEUROLOGIC: negative weakness, numbness, positive headache ROS Unobtainable: All systems reviewed & are unremarkable except as noted in HPI and below Patient History Social History Smoking Status: Current every day smoker Smoking Status: Current every day smoker alcohol intake frequency: holidays/special occasions only Substance Use Type: does not use Exam Narrative Exam Narrative: GENERAL: in no distress, not toxic not dyspneic HEAD: Normocephalic. EYES: Pupils equal round, conjunctiva pink ENT: Mucous membranes moist. NECK: Trachea midline. No thyromegaly CARDIOVASCULAR: Regular rate and rhythm, no tachycardia RESPIRATORY: Clear to auscultation. Breath sounds equal bilaterally. No wheezes, rales, or rhonchi. GASTROINTESTINAL: Abdomen soft, non-tender EXTREMITIES: No gross deformities. No calf tenderness BACK: No flank tenderness. NEURO: AOx4. SKIN: Warm and dry PSYCH: Not anxious, is cooperative Initial Vital Signs Initial Vital Signs: Vital Signs Temperature 97.4 F L 10/21/22 09:13 Pulse Rate 95 H 10/21/22 09:13 Respiratory Rate 18 10/21/22 09:13 Blood Pressure 153/80 H 10/21/22 09:13 Pulse Oximetry 98 10/21/22 09:13 Oxygen Delivery Method Room Air 10/21/22 09:13 Scores HEART Score Heart Score history: Slightly Suspicious Heart Score EKG: Non-Specific repolarization disturbance Heart Score Age: < 45 years old Heart Score risk factors: 1-2 risk factors Heart Score troponin: < or = to normal limit Heart Score Total: 2 Course Orders Ordered: ED Orders 10/21/22 09:19 XR chest 1V Stat 10/21/22 09:22 Complete Blood Count AUTO DIFF Stat Comprehensive Metabolic Panel Stat D Dimer Stat Lipase Stat Magnesium Stat PTT Partial Thromboplastin Nino Stat Prothrombin Time INR Stat TSH [Thyroid Stimulating Hormone] Stat Troponin & CK Cardiac Panel Stat 10/21/22 09:24 EKG-12 Lead Stat 10/21/22 10:00 Urine Culture Stat Urine Drug Screen, Rapid Stat Urine Microscopic Stat 10/21/22 11:55 Troponin & CK Cardiac Panel Stat Vital Signs Vital signs: Vital Signs - 8 hr 10/21/22 09:13 10/21/22 09:17 10/21/22 09:30 Temperature 97.4 F L Pulse Rate 95 H 95 H Respiratory Rate 18 29 H Blood Pressure 153/80 H 129/80 Pulse Oximetry 98 99 Oxygen Delivery Method Room Air 10/21/22 09:30 10/21/22 11:00 10/21/22 11:30 Temperature Pulse Rate 86 67 64 Respiratory Rate 22 20 Blood Pressure Pulse Oximetry 98 97 97 Oxygen Delivery Method 10/21/22 12:00 Temperature Pulse Rate 64 Respiratory Rate 21 Blood Pressure Pulse Oximetry 98 Oxygen Delivery Method MDM - Chest Pain Lab Data 10/21/22 09:22 10/21/22 09:22 Labs: Lab Results 10/21/22 10/21/22 10/21/22 Range/Units 09:22 09:22 09:22 WBC 8.9 (4.5-11.0) X10^3/uL RBC 4.78 (4.0-5.2) X10^6/uL Hgb 14.4 (12.0-16.0) g/dL Hct 42.0 (36-46) % MCV 87.9 (80-100) fL MCH 30.1 (26-34) PG MCHC 34.3 (30-36) % RDW 13.3 (11.6-14.8) % Plt Count 152 (150-400) X10^3/uL Neut % (Auto) 56.2 (50-75) % Lymph % (Auto) 36.4 (25-40) % [place] % (Auto) 3.5 (3-14) % Eos % (Auto) 3.1 (2-4) % Baso % (Auto) 0.8 (0-2) % Neut # (Auto) 5000 (2639-4417) /uL Lymph # (Auto) 3200 (4497-0733) /uL [place] # (Auto) 300 (0-900) /uL Eos # (Auto) 300 (0-450) /uL Baso # (Auto) 100 (0-100) /uL PT 12.7 (10.1-12.7) SECONDS INR 1.1 (0.9-1.3) APTT 30 (26-36) SECONDS D-Dimer (<500) ng/ml Sodium 137 (137-145) mmol/L Potassium 4.3 (3.4-5.1) mmol/L Chloride 105 (98-107) mmol/L Carbon Dioxide 21 L (22-32) mmol/L BUN 11 (7-17) mg/dL Creatinine 0.67 (0.52-1.04) mg/dL Estimated GFR > 60 (>60) mL/min BUN/Creatinine Ratio 16.4 (6-22) Glucose 177 H (70-100) mg/dL Calcium 8.9 (8.4-10.2) mg/dL Magnesium 1.9 (1.6-2.3) mg/dL Total Bilirubin 0.5 (0.2-1.3) mg/dL AST 17 (14-36) IU/L ALT 20 (<35) IU/L Alkaline Phosphatase 59 (38-126) U/L Total Creatine Kinase 57 (30-135) U/L CK-MB (CK-2) TNP CK-MB (CK-2) Rel Index TNP Troponin I < 0.012 (0.01-0.034) ng/mL Total Protein 7.6 (6.3-8.2) g/dL Albumin 4.6 (3.5-5.0) g/dL Globulin 3.0 (1.7-4.1) g/dL Albumin/Globulin Ratio 1.5 (1.0-2.8) Lipase 194 (23-300) U/L TSH (0.47-4.68) uIU/mL Urine RBC (0-5/HPF) Urine WBC (0-5/HPF) Ur Squamous Epith Cells (0-5/HPF) Urine Bacteria (None) Ur Culture Indicated? U Opiates 300ng/mL cut (Negative) Ur Oxycodone Screen (Negative) Urine Methadone Screen (Negative) Ur Barbiturates Screen (Negative) U Tricyclic Antidepress (Negative) Ur Phencyclidine Scrn (Negative) Ur Amphetamines Screen (Negative) U Methamphetamines Scrn (Negative) Ur MDMA Scrn (Ecstasy) (Negative) U Benzodiazepines Scrn (Negative) Urine Cocaine Screen (Negative) U Marijuana (THC) Screen (Negative) 10/21/22 10/21/22 10/21/22 Range/Units 09:22 09:22 10:00 WBC (4.5-11.0) X10^3/uL RBC (4.0-5.2) X10^6/uL Hgb (12.0-16.0) g/dL Hct (36-46) % MCV (80-100) fL MCH (26-34) PG MCHC (30-36) % RDW (11.6-14.8) % Plt Count (150-400) X10^3/uL Neut % (Auto) (50-75) % Lymph % (Auto) (25-40) % [place] % (Auto) (3-14) % Eos % (Auto) (2-4) % Baso % (Auto) (0-2) % Neut # (Auto) (0478-1975) /uL Lymph # (Auto) (6782-3048) /uL [place] # (Auto) (0-900) /uL Eos # (Auto) (0-450) /uL Baso # (Auto) (0-100) /uL PT (10.1-12.7) SECONDS INR (0.9-1.3) APTT (26-36) SECONDS D-Dimer 305 (<500) ng/ml Sodium (137-145) mmol/L Potassium (3.4-5.1) mmol/L Chloride (98-107) mmol/L Carbon Dioxide (22-32) mmol/L BUN (7-17) mg/dL Creatinine (0.52-1.04) mg/dL Estimated GFR (>60) mL/min BUN/Creatinine Ratio (6-22) Glucose (70-100) mg/dL Calcium (8.4-10.2) mg/dL Magnesium (1.6-2.3) mg/dL Total Bilirubin (0.2-1.3) mg/dL AST (14-36) IU/L ALT (<35) IU/L Alkaline Phosphatase (38-126) U/L Total Creatine Kinase (30-135) U/L CK-MB (CK-2) CK-MB (CK-2) Rel Index Troponin I (0.01-0.034) ng/mL Total Protein (6.3-8.2) g/dL Albumin (3.5-5.0) g/dL Globulin (1.7-4.1) g/dL Albumin/Globulin Ratio (1.0-2.8) Lipase (23-300) U/L TSH 0.991 (0.47-4.68) uIU/mL Urine RBC (0-5/HPF) Urine WBC (0-5/HPF) Ur Squamous Epith Cells (0-5/HPF) Urine Bacteria (None) Ur Culture Indicated? U Opiates 300ng/mL cut Negative (Negative) Ur Oxycodone Screen Negative (Negative) Urine Methadone Screen Negative (Negative) Ur Barbiturates Screen Negative (Negative) U Tricyclic Antidepress Negative (Negative) Ur Phencyclidine Scrn Negative (Negative) Ur Amphetamines Screen Negative (Negative) U Methamphetamines Scrn Negative (Negative) Ur MDMA Scrn (Ecstasy) Negative (Negative) U Benzodiazepines Scrn Negative (Negative) Urine Cocaine Screen Negative (Negative) U Marijuana (THC) Screen Negative (Negative) 10/21/22 10/21/22 Range/Units 10:00 11:55 WBC (4.5-11.0) X10^3/uL RBC (4.0-5.2) X10^6/uL Hgb (12.0-16.0) g/dL Hct (36-46) % MCV (80-100) fL MCH (26-34) PG MCHC (30-36) % RDW (11.6-14.8) % Plt Count (150-400) X10^3/uL Neut % (Auto) (50-75) % Lymph % (Auto) (25-40) % [place] % (Auto) (3-14) % Eos % (Auto) (2-4) % Baso % (Auto) (0-2) % Neut # (Auto) (7280-9899) /uL Lymph # (Auto) (0561-4541) /uL [place] # (Auto) (0-900) /uL Eos # (Auto) (0-450) /uL Baso # (Auto) (0-100) /uL PT (10.1-12.7) SECONDS INR (0.9-1.3) APTT (26-36) SECONDS D-Dimer (<500) ng/ml Sodium (137-145) mmol/L Potassium (3.4-5.1) mmol/L Chloride (98-107) mmol/L Carbon Dioxide (22-32) mmol/L BUN (7-17) mg/dL Creatinine (0.52-1.04) mg/dL Estimated GFR (>60) mL/min BUN/Creatinine Ratio (6-22) Glucose (70-100) mg/dL Calcium (8.4-10.2) mg/dL Magnesium (1.6-2.3) mg/dL Total Bilirubin (0.2-1.3) mg/dL AST (14-36) IU/L ALT (<35) IU/L Alkaline Phosphatase (38-126) U/L Total Creatine Kinase 109 (30-135) U/L CK-MB (CK-2) TNP CK-MB (CK-2) Rel Index TNP Troponin I < 0.012 (0.01-0.034) ng/mL Total Protein (6.3-8.2) g/dL Albumin (3.5-5.0) g/dL Globulin (1.7-4.1) g/dL Albumin/Globulin Ratio (1.0-2.8) Lipase (23-300) U/L TSH (0.47-4.68) uIU/mL Urine RBC None seen (0-5/HPF) Urine WBC 0-1/hpf (0-5/HPF) Ur Squamous Epith Cells 5-10 /hpf H (0-5/HPF) Urine Bacteria Moderate (10-30) H (None) Ur Culture Indicated? Specimen cultured U Opiates 300ng/mL cut (Negative) Ur Oxycodone Screen (Negative) Urine Methadone Screen (Negative) Ur Barbiturates Screen (Negative) U Tricyclic Antidepress (Negative) Ur Phencyclidine Scrn (Negative) Ur Amphetamines Screen (Negative) U Methamphetamines Scrn (Negative) Ur MDMA Scrn (Ecstasy) (Negative) U Benzodiazepines Scrn (Negative) Urine Cocaine Screen (Negative) U Marijuana (THC) Screen (Negative) Point of Care Testing Test Results Negative Urine Dip Bedside Urine Glucose Negative Bedside Urine Bilirubin - Negative Bedside Urine Ketone - Negative Urine Specific [place] 1.010 Bedside Urine Occult Blood - Negative Bedside Urine pH 6.0 Bedside Urine Protein - Negative Bedside Urine Urobilinogen - Negative Bedside Urine Nitrite - Negative Bedside Urine Leukocytes + 70 Esterase Imaging Data Chest x-ray: Radiologist's Impression: [address] [id number] XRay Report Signed Patient: Elvira Zamora MR#: [id number] : 1985 Acct:[id number] Age/Sex: 37 / F Date of Service: 10/21/22 Loc: ED Accession Number: [id number] ?? Procedure: XR chest 1V Ordering Provider: Issa Vega MD PROCEDURE:? XR CHEST 1V ? INDICATIONS:? chest pain ? TECHNIQUE:? One view of the chest was acquired.? ? COMPARISON:? None. ? FINDINGS:? ? Surgical changes and devices:? None.? ? Lungs and pleura:? Lungs are clear.? No pleural effusions or pneumothorax.? ? Mediastinum:? Mediastinal contours appear normal.? Heart size is normal.? ? Bones and chest wall:? No suspicious bony lesions.? Overlying soft tissues appear unremarkable.? ? IMPRESSION:? No acute cardiopulmonary findings. ? ? Dictated by: Colette Macias M.D. on 10/21/2022 at 9:44 ? ? Approved by: Colette Macias M.D. on 10/21/2022 at 9:44 ? MDM Narrative Medical decision making narrative: Patient here for multiple complaints. Three weeks ago started with palpitations. Her heart rate would wax and wane, heart rate would go up to as high as 180. At rest sometimes it is at 99. Sometimes elevates when she exercises/jogs. Denies any exertional chest pain or dyspnea with this. At times she will get discoloration to her lips as well as fingers and toes. She states they turn blue. Sometimes she has left-sided headache. She wears a smart watch in it monitors her heart rate. She states her blood pressure has been elevated as high as 140/90. This is high for her. She sees a provider [facility] the [facility]. However she had appointment today at 3:30 a.m. and was informed by the office to come here for evaluation. She did go online the web, for a provider to do blood work. Patient states she is adopted and does not know her family. She is not on any prescribed medications. She does not do drugs or drink alcohol. She does smoke. No known history of thyroid disease. She states she in [place] she had visit to the emergency department 3 hours and was informed that she had a ?heart attack? but was discharged after 3 hours. No stress test heart catheterization was done. One month later she stayed overnight at another hospital and had stress test and echocardiogram which she says was normal. She states they found a murmur on the echocardiogram. She states she is scheduled for a heart monitor by the online provider. No prior history of blood clots in legs or lungs After history and exam CBC CMP EKG troponin magnesium TSH chest x-ray D-dimer drug screen test MDM CC: Palpitations chest pain headache Complicating co-morbidities: Patient is a smoker Data collected from: Patient Medical records reviewed: No previous visits here Differential considered: Includes but not limited to stable angina unstable angina STEMI non-STEMI hyperthyroidism hypothyroidism, arrhythmia, SVT, AFib a flutter electrolyte imbalance, anemia Exam documented above, pertinent findings include: No thyromegaly Lab Test results independently reviewed as above. Pertinent findings: WBC 8.9 hemoglobin 14.4 sodium 137 potassium 4.3 glucose 177 AST 17 ALT 20 troponin less than 0.012, repeat troponin less than 0.012, D-dimer 305 TSH 0.991. Drug screen negative, negative test Independently reviewed EKG as normal sinus rhythm rate [address] elevation or depression Imaging studies independently reviewed: Chest x-ray no acute process Treatments: None required at this time Re-evaluations: 12:34 p.m.. Reviewed results with patient. Blood pressure has improved as well as heart rate 120 9/80 with pulse of 71. Patient in no distress. There has not been any arrhythmic event or tachycardia during course of stay while on monitor. Return precautions reviewed with her. She has appointment today at 3:00 p.m.. She will go to her primary care today. Informed her she will need Holter monitoring or Zio patch. She understands. Not toxic at discharge. Return precautions reviewed with her. She desires discharge home Discussion: Appropriate for discharge home. Exam and laboratory studies and imaging are reassuring. Patient has low heart score. Patient here for chiefly palpitations and tachycardia. D-dimer is negative. No CT imaging indicated. Patient on monitor and no arrhythmia seen while here. She has appointment today at 3:00 p.m. with primary care which she will go to and to schedule for Holter monitoring or Zio patch. Not toxic at discharge. She desires discharge home. No prescriptions indicated at this time. Diagnosis: Palpitations Discharge Plan Departure Patient Disposition: Home Clinical Impression: Heart palpitations Instructions: DI for Arrhythmias Activity Restrictions/Additional Instructions: Please see your family doctor today at 3:00 p.m., this afternoon as scheduled. Return if worse if any questions or concerns. Please see your family doctor today and scheduled for Holter monitoring or a Zio patch. Today laboratory studies and testing have been reassuring. Hopefully the Holter monitor will be able to capture the type of rhythm/fast heartbeat you have had recently. Referrals: Provider,Alissa PARKS [Primary Care Provider] - Stand Alone Forms: Patient Portal/API
[2022-10-21 09:46] LABS: PTT Partial Thromboplastin Tim 30 SECONDS (26-36)
[2022-10-21 09:49] LABS: Alanine Aminotransferase 20 IU/L (<35); Albumin 4.6 g/dL (3.5-5.0); Albumin Globulin Ratio 1.5 (1.0-2.8); Alkaline Phosphatase 59 U/L (38-126); Aspartate Aminotransferase 17 IU/L (14-36); BUN Creatinine Ratio 16.4 (6-22); Bilirubin Total 0.5 mg/dL (0.2-1.3); Blood Urea Nitrogen 11 mg/dL (7-17); Calcium 8.9 mg/dL (8.4-10.2); Carbon Dioxide 21 mmol/L (22-32); Chloride 105 mmol/L (98-107); Creatine Kinase 57 U/L (30-135); Estimated Glomerular Filt Rate > 60 mL/min (>60); Glucose 177 mg/dL (70-100); HEMOLYSIS < 15 (0-50); Lipase 194 U/L (23-300); Magnesium 1.9 mg/dL (1.6-2.3); Potassium 4.3 mmol/L (3.4-5.1); Sodium 137 mmol/L (137-145); Total Protein 7.6 g/dL (6.3-8.2)
[2022-10-21 10:00] LABS: Troponin I < 0.012 ng/mL (0.01-0.034)
[2022-10-21 10:17] LABS: D Dimer 305 ng/ml (<500)
[2022-10-21 10:20] LABS: UR Morphine/Opiate cutoff 300 Negative (Negative); Ur Creatinine Normal (Normal); Ur Specific Gravity Normal (Normal); Urine Amphetamines Negative (Negative); Urine Barbiturates Negative (Negative); Urine Benzodiazepines Negative (Negative); Urine Cocaine Negative (Negative); Urine MDMA Negative (Negative); Urine Methadone Negative (Negative); Urine Methamphetamines Negative (Negative); Urine Oxycodone Negative (Negative); Urine Phencyclidine Negative (Negative); Urine Tetrahydrocannabinol Negative (Negative); Urine Tricyclic Antidepressant Negative (Negative); Urine pH Normal (Normal)
[2022-10-21 10:23] LABS: RBC Urine None Seen (0-5/HPF); Squamous Epithelial Cell Urine 5-10 /HPF (0-5/HPF); WBC Urine 0-1/HPF (0-5/HPF)
[2022-10-21 10:24] LABS: Bacteria Urine Moderate (10-30); Culture Indicated Urine Specimen Cultured
[2022-10-21 10:51] LABS: Thyroid Stimulating Hormone 0.991 uIU/mL (0.47-4.68)
[2022-10-21 12:13] LABS: Creatine Kinase 109 U/L (30-135)
[2022-10-21 12:24] LABS: Troponin I < 0.012 ng/mL (0.01-0.034)
== END 2022-10-21 12:39 | disposition home or self-care (01) ==
PROVIDERS: Emergency Provider Emergency Medicine; Family Provider Nurse Practitioner Family
DX: R00.2 Palpitations (principal)
CPT/HCPCS: 36415; 71045; 80053; 80305; 81003; 81015; 81025; 82550; 83690; 83735; 84443; 84484; 85025; 85379; 85610; 85730; 87086; 93005; 93010; 99284